=== PATIENT | male | born 1970 | race Caucasian/White ===

== ENCOUNTER → 2023-04-04 02:40 | Outpatient (CLI) | payer MEDICAID, SELFPAY ==
--- NOTE | 2023-04-04 13:35 | DI.RAD_ITS ---
Exam(s) XR LUMBAR SPINE COMPLETE EXAM: XR LUMBAR SPINE COMPLETE CLINICAL HISTORY: LBP, M54.50. TECHNIQUE: 2D digital imaging was performed. COMPARISON: No exams were available for comparison FINDINGS: Five views No evidence of fracture. Mild anterolisthesis L5 upon S1 which appears to be related to facet arthro sis. Also appear to be pars defects. There is moderate disc space narrowing at each level in the jerry mbar spine, most prominent at L3-4 and L4-5 levels. No prominent scoliosis. SI joints appear un mar ked below. Facet joint arthrosis noted. IMPRESSION: Multilevel chronic degenerative disc disease. Also throw listhesis L5 upon S1 due to pars defects an d some. If clinically indicated follow-up MRI can be performed DATA REPOSITORY: RADIATION DOSE DELIVERED:
--- NOTE | 2023-04-04 13:38 | DI.RAD_ITS ---
Exam(s) XR THORACIC SPINE COMPLETE EXAM: XR THORACIC SPINE COMPLETE CLINICAL HISTORY: LBP, M54.50. TECHNIQUE: 2D digital imaging was performed. COMPARISON: CR XR LUMBAR SPINE COMPLETE from 04/04/2023 FINDINGS: 3 views There are no compression fractures nor listhesis in the thoracic spinal column. No significant scoli osis. No abnormal widening of the paraspinal lines. No osseous lesions. Bone density is age-approp riate. IMPRESSION: As above. DATA REPOSITORY: RADIATION DOSE DELIVERED:
== END ==
PROVIDERS: PCP Nurse Practitioner Family; Visit Provider Nurse Practitioner Family
DX: M50.33 Other cervical disc degeneration, cervicothoracic region (principal)
CPT/HCPCS: 72072; 72110

== ENCOUNTER 2024-10-07 12:05 | Inpatient (IN) | payer MEDICAID, SELFPAY ==
[2024-10-07] VITALS (55 sets, daily range): BP systolic 108–163; BP diastolic 60–95; PULSE 36–61; RESP 16–21; TEMP 36.1; O2SAT 91–98
--- NOTE | 2024-10-07 12:00 | RT.EKG_ITS ---
APPROVED REPORT Exam: Resting ECG Reason for Exam: Overdose Patient Location: E HR:56 bpm ECG Measurements Heart Rate 56 AXIS WV 219 P 42 QRSd 99 QRS 18 QT 460 T 156 QTc 425 Conclusion Sinus bradycardia...rate< 60 Ventricular premature complex...V complex w/ short R-R interval Prolonged WV interval...WV >210, V-rate 50- 90 Abnormal T, consider ischemia, lateral leads...T <-0.20mV, I aVL V5 V6 Borderline ST elevation, anterior leads...ST >0.15mV in V1-V4
--- NOTE | 2024-10-07 12:23 | NUR.NOTE ---
Nursing Note: Called poison control and talked to KWAKU Peters. Per Lorraine the following should be checked: APAP/ASA level, CMP, CBC, EKG for Qtc changes. Supportive measures.
[2024-10-07 12:27] LABS: Abs Immature Grans 0.01 10^3/uL (0.0-0.06); HCT 40.1 % (40.0-50.0); HGB 13.5 g/dL (13.5-17.5); Immature Grans % 0.2 %; MCH 30.1 pg (27.0-33.0); MCHC 33.7 % (32.0-36.0); MCV 90 fL (80-95); MPV 10.6 fL (8.0-11.0); Platelet Count 168 10^3/uL (130-400); RBC 4.48 10^6/uL (4.36-5.78); RDW 13.2 % (11.8-14.1); RDW-SD 43.5 fL; WBC 4.99 10^3/uL (4.4-10.8)
[2024-10-07 12:58] LABS: Cannabinoids THC Negative (Negative); METHADONE URINE SCREEN Negative (Negative)
[2024-10-07 13:00] LABS: ALT 26 U/L (16-63); AST 25 U/L (15-37); Albumin 3.2 g/dL (3.4-5.0); Alkaline Phosphatase 54 U/L (46-116); Anion Gap 10.2 mmol/L (3-11); BUN 17 mg/dL (7-18); Bilirubin, Total 0.6 mg/dL (0.2-1.0); CO2 23.8 mmol/L (21.0-32.0); Calcium 8.4 mg/dL (8.5-10.1); Chloride 109 mmol/L (98-107); Estimated GFR 90.56 (mL/min/1.73m2); Glucose 118 mg/dL (74-106); Magnesium 2.3 mg/dL (1.8-2.4); Potassium 3.8 mmol/L (3.5-5.1); Sodium 143 mmol/L (136-145); Total Protein 6.1 g/dL (6.4-8.2); Troponin I 65 ng/L (<or=76)
[2024-10-07 13:13] LABS: Salicylate < 2.8 mg/dL (<2.8)
[2024-10-07 13:14] LABS: Acetaminophen < 2 ug/mL (10-30)
--- NOTE | 2024-10-07 14:43 | DI.CT_ITS ---
Exam(s) CT HEAD WO EXAM: CT HEAD WO CLINICAL HISTORY: alterted. TECHNIQUE: Imaging Protocol: Axial computed tomography images with coronal and sagittal reformatted images were created and reviewed COMPARISON: CT HEAD WITH/WITHOUT CONTRAST from 05/13/2012 FINDINGS: There are no skull fractures. There is no fluid in the visualized paranasal sinuses. There is no evidence of intracranial hemorrhage, mass effect, or shift of midline structures. There are no extra-axial fluid collections. The ventricles are not enlarged or shifted and there is no blood within the ventricular system nor within the basal cisterns. IMPRESSION: No acute intracranial findings on this noninfused CT scan of the brain. Report called by myself to ER 10/07/2024 at 3:15 p.m. RADIATION DOSE DELIVERED: 887.96mGy.cm Total DLP DATA REPOSITORY: All CT scans at this facility are submitted to the National Radiology Data Registry (NRDR) Dose Index Registry (DIR) with the [employer] (A[employer]). RADIATION OPTIMIZATION: All CT scans at this facility use at least one of these dose optimization techniques: automated exposure control; mA and/or kV adjustment per patient size (includes targeted exams where dose is matched to clinical indication); or iterative reconstruction.
--- NOTE | 2024-10-07 15:22 | ED.GENADUL_ITS ---
Discharge Plan Disposition Patient Disposition: Admit to [facility] Condition: Serious Discharge Details Clinical Impression: Acute alteration in mental status, Acute drug overdose, First degree AV block Primary Care Provider: Unknown,Unknown ED Provider: Dl Sprague Home Meds and New Rx's Prescriptions: No Action omeprazole 20 MG capsule,delayed release(DR/EC) 20 mg PO DAILY HPI General Mode of arrival: ambulatory . Date/Time Provider Initiated Documentation: 10/07/24 12:16 . Limitations to Documentation: altered mental status . Information obtained by: patient . HPI Narrative: HISTORY OF PRESENT ILLNESS 53-year-old male found unresponsive and incontinent in [facility]. Last known normal at 2300 hours. Empty prescription bottles at bedside: clonidine 0.2 mg, clonazepam 0.5 mg, methylphenidate 10 mg, pantoprazole 40 mg. Clonazepam and methylphenidate bottles nearly full (90 tabs). Clonidine filled in 05/2024. History limited secondary to altered mental status. The patient's called and provided additional history noting that patient has been acting odd a couple weeks ago which then resolved until yesterday when he was again behaving atypically. When she woke up today she noticed that he was altered and that the pill bottles were empty next to the bed. Related Data Home Medications ?Medication ?Instructions ?Recorded ?Confirmed omeprazole 20 mg capsule,delayed 20 mg PO DAILY 09/13/17 release Allergies Allergy/AdvReac Type Severity Reaction Status Date / Time No Known Allergies Allergy Unverified 09/13/17 10:48 General Stated Complaint: OD/Poison [place]LAH: 2 Exam [facility] Head: normocephalic and atraumatic Mouth: moist mucous membranes Eyes Conjunctivae: normal conjunctivae Sclera: normal sclerae Neck Neck: trachea midline and supple Resp Auscultation: clear to auscultation bilaterally, no rales, no rhonchi and no wheezes Cardio Rate: regular rate and not tachycardic Rhythm: regular rhythm GI Palpation: soft, not firm, no guarding, no masses, not rigid and nontender Skin General skin exam: no rashes or lesions noted Neuro General: not alert and not awake Cognition: abnormal cognition Left pupil size: 4 cm Right pupil size: 4 cm Other: GCS 9 ([id number]) Extrem General: no edema Psych Mental Status: mental status grossly abnormal Course Vital Signs Vital signs: Vital Signs Pulse 53 L 07/16/25 12:08 Respiratory Rate 21 10/07/24 12:08 Blood Pressure 163/95 H 10/07/24 12:08 Pulse Oximetry 98 10/07/24 12:08 Pulse 48 L 10/07/24 14:31 Pulse 48 L 10/07/24 14:31 Respiratory Rate 17 10/07/24 14:31 Blood Pressure 117/67 10/07/24 14:30 Blood Pressure Mean 83 10/07/24 14:30 Blood Pressure Position Sitting 10/07/24 12:08 Pulse Oximetry 96 10/07/24 14:31 Respiratory End-tidal CO2 23 10/07/24 14:31 Oxygen Delivery Method Nasal Cannula 10/07/24 12:08 Oxygen Flow Rate 3 10/07/24 12:08 Lab/Test Results Lab/Test Results: Laboratory Tests Range/Units 10/07/24 10/07/24 12:07 12:28 WBC (4.4-10.8) 10^3/uL 4.99 RBC (4.36-5.78) 10^6/uL 4.48 Hgb (13.5-17.5) g/dL 13.5 Hct (40.0-50.0) % 40.1 MCV (80-95) fL 90 MCH (27.0-33.0) pg 30.1 MCHC (32.0-36.0) % 33.7 RDW (11.8-14.1) % 13.2 Plt Count (130-400) 10^3/uL 168 MPV (8.0-11.0) fL 10.6 Immature Gran % % 0.2 Neutrophils % % 56.7 Lymphocytes % % 25.5 Monocytes % % 12.4 Eosinophils % % 4.2 Basophils % % 1.0 Nucleated RBC % (0.0-0.3) % 0.0 Absolute Neutrophils (1.2-6.7) 10^3/uL 2.83 Absolute Lymphocytes (1.2-3.4) 10^3/uL 1.27 Absolute Monocytes (0.1-0.8) 10^3/uL 0.62 Absolute Eosinophils (0.0-0.7) 10^3/uL 0.21 Absolute Basophils (0.0-0.2) 10^3/uL 0.05 Sodium (136-145) mmol/L 143 Potassium (3.5-5.1) mmol/L 3.8 Chloride (98-107) mmol/L 109 H Carbon Dioxide (21.0-32.0) mmol/L 23.8 Anion Gap (3-11) mmol/L 10.2 BUN (7-18) mg/dL 17 Creatinine (0.70-1.30) mg/dL 1.0 Est GFR (CKD-EPI 2020) (mL/min/1.73m2) 90.56 Glucose (74-106) mg/dL 118 H Calcium (8.5-10.1) mg/dL 8.4 L Magnesium (1.8-2.4) mg/dL 2.3 Total Bilirubin (0.2-1.0) mg/dL 0.6 AST (15-37) U/L 25 ALT (16-63) U/L 26 Alkaline Phosphatase (46-116) U/L 54 Troponin I (<or=76) ng/L 65 Total Protein (6.4-8.2) g/dL 6.1 L Albumin (3.4-5.0) g/dL 3.2 L Salicylates (<2.8) mg/dL < 2.8 Urine Opiates Screen (Negative) Negative Urine Methadone Screen (Negative) Negative Acetaminophen (10-30) ug/mL < 2 Ur Barbiturates Screen (Negative) Negative Ur Tricyclics Screen (Negative) Negative Ur Amphetamines Screen (Negative) Negative U Benzodiazepines Scrn (Negative) Negative Urine Cocaine Screen (Negative) Negative Ur THC Screen (Negative) Negative Ethyl Alcohol (<10) mg/dL < 3.0 Medical Decision Making ASSESSMENT AND PLAN Initial Assessment: 53-year-old male found unresponsive and incontinent with empty prescription bottles. Somnolent, responds to painful stimuli, unresponsive to verbal stimuli. EKG shows sinus bradycardia, prolonged DE interval, corrected QTc interval. Hemodynamically stable, protecting airway. Recent abnormal behavior per . Differential Diagnosis: - Drug overdose: Empty prescription bottles found. Consider suicidal attempt. - Cardiac arrhythmia: Sinus bradycardia, prolonged DE interval. - Neurological event including acute life-threatening hemorrhage: Unresponsive, somnolent. - Consider toxic ingestion. ED Course: - Found unresponsive and incontinent with empty prescription bottles. - EKG: Sinus bradycardia, 56 bpm, normal axis, prolonged DE interval 219, corrected QTc interval 525. - Hemodynamically stable: BP 163/95, HR 70, SpO2 97% on 3 L nasal cannula, RR 21. - Pupils 4 mm, reactive bilaterally. - Respiratory therapy consulted. - Chart review: Last seen in ED in 2018. - CT of the head was reviewed and interpreted by radiology: No acute intracranial findings at this time if you CT scan of the brain. - Nursing spoke with Poison Control Center and the recommended continued monitoring. - Labs reviewed and nondiagnostic. - I called and spoke with Dr. Niño, on-call hospitalist, he will admit the patient. Final Assessment: Suspected drug overdose, sinus bradycardia, prolonged DE interval. Hemodynamically stable, protecting airway. Monitoring and poison contr ol consultation. Clinical Impression: - Drug overdose - Sinus bradycardia - Altered mental status - 1st deg AV block Disposition: - Admission: Hospitalization required This document was written with the assistance of EDUAR Wilkins. The patient consented to its use. Lab Data Labs: Laboratory Tests Range/Units 10/07/24 10/07/24 12:07 12:28 WBC (4.4-10.8) 10^3/uL 4.99 RBC (4.36-5.78) 10^6/uL 4.48 Hgb (13.5-17.5) g/dL 13.5 Hct (40.0-50.0) % 40.1 MCV (80-95) fL 90 MCH (27.0-33.0) pg 30.1 MCHC (32.0-36.0) % 33.7 RDW (11.8-14.1) % 13.2 Plt Count (130-400) 10^3/uL 168 MPV (8.0-11.0) fL 10.6 Immature Gran % % 0.2 Neutrophils % % 56.7 Lymphocytes % % 25.5 Monocytes % % 12.4 Eosinophils % % 4.2 Basophils % % 1.0 Nucleated RBC % (0.0-0.3) % 0.0 Absolute Neutrophils (1.2-6.7) 10^3/uL 2.83 Absolute Lymphocytes (1.2-3.4) 10^3/uL 1.27 Absolute Monocytes (0.1-0.8) 10^3/uL 0.62 Absolute Eosinophils (0.0-0.7) 10^3/uL 0.21 Absolute Basophils (0.0-0.2) 10^3/uL 0.05 Sodium (136-145) mmol/L 143 Potassium (3.5-5.1) mmol/L 3.8 Chloride (98-107) mmol/L 109 H Carbon Dioxide (21.0-32.0) mmol/L 23.8 Anion Gap (3-11) mmol/L 10.2 BUN (7-18) mg/dL 17 Creatinine (0.70-1.30) mg/dL 1.0 Est GFR (CKD-EPI 2020) (mL/min/1.73m2) 90.56 Glucose (74-106) mg/dL 118 H Calcium (8.5-10.1) mg/dL 8.4 L Magnesium (1.8-2.4) mg/dL 2.3 Total Bilirubin (0.2-1.0) mg/dL 0.6 AST (15-37) U/L 25 ALT (16-63) U/L 26 Alkaline Phosphatase (46-116) U/L 54 Troponin I (<or=76) ng/L 65 Total Protein (6.4-8.2) g/dL 6.1 L Albumin (3.4-5.0) g/dL 3.2 L Salicylates (<2.8) mg/dL < 2.8 Urine Opiates Screen (Negative) Negative Urine Methadone Screen (Negative) Negative Acetaminophen (10-30) ug/mL < 2 Ur Barbiturates Screen (Negative) Negative Ur Tricyclics Screen (Negative) Negative Ur Amphetamines Screen (Negative) Negative U Benzodiazepines Scrn (Negative) Negative Urine Cocaine Screen (Negative) Negative Ur THC Screen (Negative) Negative Ethyl Alcohol (<10) mg/dL < 3.0 PFSH All Active Problems (Updated 10/07/24 @ 15:30 by Dl Sprague MD) First degree AV block (Acute) Acute drug overdose (Acute) Acute alteration in mental status (Acute) Social History Smoking/Tobacco Use Status: Current every day Smoking risk assessment performed?: Yes Drug use: Never Do you feel safe in your relationship?: Yes
[2024-10-07] MEDS: DEXTROSE 5%-0.45% SALINE 1,000 ML 100 ML IV (15:56)
--- NOTE | 2024-10-07 17:02 | W.PM.HP.N ---
Date of service: 10/07/24 Time of Service: 17:02 Assessment and Plan Assessment and plan (1) Acute alteration in mental status: Status: Acute Assessment and plan: Exact etiology is unknown but the working diagnosis of a drug overdose. Per my discussion with the ER physician, according to poison control there is nothing further to intervene on and will require time. I do not see any role for reversal agents at this point. (2) Acute drug overdose: Status: Acute Assessment and plan: As above (3) Bradycardia: Status: Acute Assessment and plan: Patient does have fairly significant bradycardia but the question at this point is whether or not he is symptomatic or asymptomatic and he can answer. The patient is oxygenating well and protecting his airway which leads me to believe that he is also getting appropriate oxygen to his brain. Will continue to monitor but at this point will not start on pacer support. History of Present Illness History of Present Illness Chief Complaint: drug overdose Narrative: This H&P is completed through chart review as the patient is not responding at this time. He does open his eyes to verbal stimuli but does not keep them open long enough to get any sort of linear history. Per ED note Mr. Mcgregor ingested multiple medications that belonged to his including clonidine clonazepam methylphenidate pantoprazole with most of those bottles being quite full. Evidently according to his who discussed the patient with the ED physician Dr. Sprague had been acting strangely over the last couple of weeks before she found him passed out he was brought in by ambulance. In reviewing his clinical data white count CBCs were essentially benign his CMP was essentially benign urine drug screen was negative specifically negative for benzodiazepines. This does cast intact out at least the clonazepam part of the story. Imaging done in the ED including a head CT was negative for any acute events. In reviewing the ED note he was noted to have sinus bradycardia with a heart rate less than 60. Nursing staff report that the patient has heart rate is in the high 30s to low 40s but he is oxygenating well. Review of Systems Unobtainable due to mental condition PFSH All Active Problems (Updated 10/07/24 @ 17:11 by Elias Niño MD) Bradycardia (Acute) First degree AV block (Acute) Acute drug overdose (Acute) Acute alteration in mental status (Acute) Social History Smoking/Tobacco Use Status: Current every day Smoking risk assessment performed?: Yes Drug use: Never Do you feel safe in your relationship?: Yes Meds Allergies and Home Medications Allergies Allergy/AdvReac Type Severity Reaction Status Date / Time No Known Allergies Allergy Unverified 09/13/17 10:48 Home Medications ?Medication ?Instructions ?Recorded ?Confirmed ?Type omeprazole 20 mg capsule,delayed 20 mg PO DAILY 09/13/17 09/13/17 History release Exam Narrative Exam Narrative: HEENT-normocephalic atraumatic his mucous membranes are moist his pupils are approximately 4 mm and responsive to light. Neck-no lymphadenopathy no JVD no thyromegaly Cardiovascular-bradycardia no murmur rubs or gallops Lungs-clear to auscultation bilaterally with good air exchange patient does not appear to be in respiratory distress Abdomen-soft nontender nondistended Extremities-no cyanosis clubbing or edema Neurologic-cannot be completely assessed due to underlying condition. Patient only has a mild response to pain on his soles as well as to sternal rub. Patient does respond to verbal stimuli and will open his eyes but quickly falls asleep Results Labs 10/07/24 12:07 10/07/24 12:07 Labs: Laboratory Results - last 24 hr 10/07/24 10/07/24 12:07 12:28 WBC 4.99 RBC 4.48 Hgb 13.5 Hct 40.1 MCV 90 MCH 30.1 MCHC 33.7 RDW 13.2 Plt Count 168 MPV 10.6 Immature Gran % 0.2 Neutrophils % 56.7 Lymphocytes % 25.5 Monocytes % 12.4 Eosinophils % 4.2 Basophils % 1.0 Nucleated RBC % 0.0 Absolute Neutrophils 2.83 Absolute Lymphocytes 1.27 Absolute Monocytes 0.62 Absolute Eosinophils 0.21 Absolute Basophils 0.05 Sodium 143 Potassium 3.8 Chloride 109 H Carbon Dioxide 23.8 Anion Gap 10.2 BUN 17 Creatinine 1.0 Est GFR (CKD-EPI 2020) 90.56 Glucose 118 H Calcium 8.4 L Magnesium 2.3 Total Bilirubin 0.6 AST 25 ALT 26 Alkaline Phosphatase 54 Troponin I 65 Total Protein 6.1 L Albumin 3.2 L Salicylates < 2.8 Urine Opiates Screen Negative Urine Methadone Screen Negative Acetaminophen < 2 Ur Barbiturates Screen Negative Ur Tricyclics Screen Negative Ur Amphetamines Screen Negative U Benzodiazepines Scrn Negative Urine Cocaine Screen Negative Ur THC Screen Negative Ethyl Alcohol < 3.0 Last Vital Signs Pulse 47 L 10/07/24 16:01 Resp 17 10/07/24 16:01 BP 123/60 10/07/24 16:01 Pulse Ox 98 10/07/24 16:01 Time Spent Time spent with Patient: 40-54 minutes Time was spent: preparing to see the patient(eg.review tests), obtaining and/or reviewing separately otained hiistory, ordering medications,tests, procedures, referring, communicating with other health patient care technician instructor, indepentently interpreting results, counseling the patient and care coordination
[2024-10-08] VITALS (33 sets, daily range): BP systolic 92–125; BP diastolic 46–74; PULSE 50–107; RESP 20–36; TEMP 36.9–37.1; O2SAT 88–96
[2024-10-08] MEDS: DEXTROSE 5%-0.45% SALINE 1,000 ML 100 ML IV ×3 (01:40→21:22)
[2024-10-08 07:03] LABS: HCT 41.7 % (40.0-50.0); HGB 14.1 g/dL (13.5-17.5); MCH 30.6 pg (27.0-33.0); MCHC 33.8 % (32.0-36.0); MCV 91 fL (80-95); MPV 11.2 fL (8.0-11.0); Platelet Count 179 10^3/uL (130-400); RBC 4.61 10^6/uL (4.36-5.78); RDW 13.5 % (11.8-14.1); RDW-SD 45.2 fL; WBC 10.66 10^3/uL (4.4-10.8)
[2024-10-08 07:40] LABS: ALT 29 U/L (16-63); AST 28 U/L (15-37); Albumin 3.3 g/dL (3.4-5.0); Alkaline Phosphatase 55 U/L (46-116); Anion Gap 8.7 mmol/L (3-11); BUN 15 mg/dL (7-18); Bilirubin, Total 0.4 mg/dL (0.2-1.0); CO2 25.3 mmol/L (21.0-32.0); Calcium 9.0 mg/dL (8.5-10.1); Chloride 110 mmol/L (98-107); Estimated GFR 102.76 (mL/min/1.73m2); Glucose 102 mg/dL (74-106); Potassium 4.2 mmol/L (3.5-5.1); Sodium 144 mmol/L (136-145); Total Protein 6.5 g/dL (6.4-8.2)
--- NOTE | 2024-10-08 08:50 | INITIAL_ITS ---
Date of service: 10/08/24 Time of Service: 08:50 Care Management Initial Assmt Initial Assessment Reason for Hospitalization: drug overdose Functional Status/Living Situation Patient Presentation: Tyler was lying in bed in the ICU when CM met with him. He was still very sleepy and seemed to have difficulty staying focused. He was admitted yesterday after being found unresponsive with several empty medication bottles on the table next to him. It is presumed this was a suicide attempt. His reported to the ED that he had been off a couple of weeks ago but returned to baseline and then was off again yesterday. Conversation with Tyler was challenging. CM did learn that Tyler lives in [facility] with his Angelina. He has 2 daughters who live in [place] and is not currently employed. Further information was not forthcoming. CM was able to speak to his fiancee Angelina (together 26 years) who provided more information about Tyler. She stated that he spent 6 years in detention and was released almost 2 years ago. She stated that she believes he has some mental health issues and that there is a strong history of schizophrenia in his family. She has tried to get him to seek help but he has declined. Angelina stated that she is having a hard time with this and that Tyler has never done anything like this before. Angelina did share that Tyler spoke to his sister Jazmín recently and that every time they have a conversation, he is upset afterwards. Angelina stated that she plans to come to visit sometime this afternoon. CM offered to meet with her if she feels it would be helpful. Town of Residence: [place], [place] Resides with: Spouse (-Angelina) Employment Status: Unemployed Instrumental Activities of Daily Living (ADLs): Independent Medications Medication Management: No Issues/Barriers identified Advance Directives Advance Directives: Do you have an Advance Directive: N , 10:02 AD On File at [facility]: N 05/27/12, 10:02 Date Asked 10/07/24 10/07/24, 16:27 AD Date Reviewed COLST On File at [facility] COLST Date Scanned Code Status Resuscitation Status Full Code Portal Pt does not currently have a portal and education provided: Yes Insurance Coverage/Financial Issues Insurance: Medicaid Care Team Visit Care Team Role Provider Type Unknown Unknown Primary Care Provider STAFF PHYSICIAN Dl Sprague MD Emergency Provider [facility] STAFF PHYSICIAN Elias Niño MD Admit Provider MD [facility] STAFF PHYSICIAN Attending Provider Discharge Potential Discharge Needs: PCP F/U Appt Anticipated Barriers to Discharge: None Identified Patient/Family Education Needs: Review discharge instructions, discuss Ask Me Three Transportation: Private vehicle Plan: Tyler's discharge plan is not clear at this time. This appears to be a suicide attempt so he will need to be screened by [facility] Crisis team when he is medically cleared. He may require inpatient treatment for stabilization. CM will follow and continue to support discharge planning. Social Determinants of Health Screening Will the Patient Participate in the Screening?: Unable to obtain [facility] All Active Problems (Updated 10/07/24 @ 17:11 by Elias Niño MD) Bradycardia (Acute) First degree AV block (Acute) Acute drug overdose (Acute) Acute alteration in mental status (Acute) Social History Smoking/Tobacco Use Status: Current every day Smoking risk assessment performed?: Yes Drug use: Never Do you feel safe in your relationship?: Yes
[2024-10-08] MEDS: Omeprazole 20 MG CAPCR PO (08:51)
[2024-10-08] MEDS: Thiamine 100 MG TAB PO (08:51)
[2024-10-08] MEDS: Normal Saline Flush 10 ML SYR IVP (08:51)
[2024-10-08] MEDS: Enoxaparin 40 MG/0.4 ML SYR SC (08:51)
--- NOTE | 2024-10-08 13:41 | PGE_ITS ---
Date of Service Date of service: 10/08/24 Time of Service: 13:41 Assessment and Plan Assessment and plan (1) Acute alteration in mental status: Status: Acute Assessment and plan: Exact etiology is unknown but the working diagnosis of a drug overdose. Per my discussion with the ER physician, according to poison control there is nothing further to intervene on and will require time. I do not see any role for reversal agents at this point. 10/08/24 CW supportive care. Improving slightly (2) Acute drug overdose: Status: Acute Assessment and plan: As above (3) Bradycardia: Status: Acute Assessment and plan: Patient does have fairly significant bradycardia but the question at this point is whether or not he is symptomatic or asymptomatic and he can answer. The patient is oxygenating well and protecting his airway which leads me to believe that he is also getting appropriate oxygen to his brain. Will continue to monitor but at this point will not start on pacer support. 10/08/24 HR has improved and is now consistently in the mid-high 50's Subjective Subjective Interval history since last seen: PT does respond more appropriately today but is still quite somnolent. Exam Narrative Exam Narrative: HEENT-normocephalic atraumatic his mucous membranes are moist his pupils are approximately 4 mm and responsive to light. Neck-no lymphadenopathy no JVD no thyromegaly Cardiovascular-bradycardia no murmur rubs or gallops Lungs-clear to auscultation bilaterally with good air exchange patient does not appear to be in respiratory distress Abdomen-soft nontender nondistended Extremities-no cyanosis clubbing or edema Neuro-Pt does respond more appropriately to verbal stimuli but still not to the point where a full neuro exam is possible Objective Last Vital Signs Temp 37.1 C 10/08/24 11:29 Pulse 57 L 10/08/24 12:01 Resp 23 10/08/24 12:01 BP 112/58 L 10/08/24 12:01 Pulse Ox 94 10/08/24 12:01 Laboratory Results - last 24 hr 10/08/24 10/08/24 05:26 05:46 WBC 10.66 RBC 4.61 Hgb 14.1 Hct 41.7 MCV 91 MCH 30.6 MCHC 33.8 RDW 13.5 Plt Count 179 MPV 11.2 H Sodium 144 Potassium 4.2 Chloride 110 H Carbon Dioxide 25.3 Anion Gap 8.7 BUN 15 Creatinine 0.9 Est GFR (CKD-EPI 2020) 102.76 Glucose 102 Calcium 9.0 Total Bilirubin 0.4 AST 28 ALT 29 Alkaline Phosphatase 55 Total Protein 6.5 Albumin 3.3 L Time Spent with Patient Time Spent with Patient: 25-34 minutes Time was spent: preparing to see the patient(eg.review tests), obtaining and/or reviewing separately otained hiistory, ordering medications,tests, procedures, referring, communicating with other health healthcare economics consultant, indepentently interpreting results, counseling the patient and care coordination
[2024-10-09] VITALS (21 sets, daily range): BP systolic 74–157; BP diastolic 61–97; PULSE 55–85; RESP 8–23; TEMP 36.8–37.3; O2SAT 91–96
[2024-10-09 05:59] LABS: HCT 39.9 % (40.0-50.0); HGB 13.1 g/dL (13.5-17.5); MCH 29.9 pg (27.0-33.0); MCHC 32.8 % (32.0-36.0); MCV 91 fL (80-95); MPV 10.8 fL (8.0-11.0); Platelet Count 158 10^3/uL (130-400); RBC 4.38 10^6/uL (4.36-5.78); RDW 13.3 % (11.8-14.1); RDW-SD 44.5 fL; WBC 6.90 10^3/uL (4.4-10.8)
[2024-10-09 06:22] LABS: ALT 27 U/L (16-63); AST 26 U/L (15-37); Albumin 3.0 g/dL (3.4-5.0); Alkaline Phosphatase 51 U/L (46-116); Anion Gap 9.1 mmol/L (3-11); BUN 12 mg/dL (7-18); Bilirubin, Total 0.3 mg/dL (0.2-1.0); CO2 25.9 mmol/L (21.0-32.0); Calcium 8.6 mg/dL (8.5-10.1); Chloride 109 mmol/L (98-107); Estimated GFR 90.56 (mL/min/1.73m2); Glucose 92 mg/dL (74-106); Potassium 3.6 mmol/L (3.5-5.1); Sodium 144 mmol/L (136-145); Total Protein 6.2 g/dL (6.4-8.2)
[2024-10-09] MEDS: Thiamine 100 MG TAB PO (07:50)
[2024-10-09] MEDS: Enoxaparin 40 MG/0.4 ML SYR SC (07:50)
[2024-10-09] MEDS: Omeprazole 20 MG CAPCR PO (07:50)
[2024-10-09] MEDS: Normal Saline Flush 10 ML SYR IVP (07:51)
--- NOTE | 2024-10-09 08:55 | CMPROGNOTE_ITS ---
Date of service: 10/09/24 Time of Service: 08:55 Care Management Progress Note Progress Note Text Progress Note Text: Tawanda has shown a lot of improvement since yesterday and was medically cleared. He was screened by [facility] and denied SI or HI, yet he admitted that this was a suicide attempt and wanted to . The decision was made to make him involuntary. Unfortunately, Tawanda chose to leave AMAbefore the EE paperwork could be completed. He left at approximately 14:45. [facility] has indicated they will seek a warrant to have him brought back to [facility]. He was NOT told that the EE was in process. Discharge Potential Discharge Needs: PCP F/U Appt Anticipated Barriers to Discharge: None Identified Transportation: Private vehicle Plan: Tyler decided to leave AMA this afternoon. He was been screened by [facility] and the decision was made to hold him involuntarily. He was not informed about the decision as the paperwork had not been completed. [facility] plans to seek a warrant to have him returned to [facility]. Social Determinants of Health Screening Will the Patient Participate in the Screening?: Unable to obtain
--- NOTE | 2024-10-09 14:57 | W.PM.PROGNOT ---
Date of Service Date of service: 10/09/24 Time of Service: 14:57 Assessment and Plan Assessment and plan (1) Acute alteration in mental status: Status: Acute Assessment and plan: Exact etiology is unknown but the working diagnosis of a drug overdose. Per my discussion with the ER physician, according to poison control there is nothing further to intervene on and will require time. I do not see any role for reversal agents at this point. 10/08/24 CW supportive care. Improving slightly 10/09/24 Per NS, pt is EE. I do not have EE certification privileges. Reaching out to ED to see if ED attending can fill out paperwork properly (2) Acute drug overdose: Status: Acute Assessment and plan: As above 10/09/24 Appears close to baseline from the medical perspective (3) Bradycardia: Status: Acute Assessment and plan: Patient does have fairly significant bradycardia but the question at this point is whether or not he is symptomatic or asymptomatic and he can answer. The patient is oxygenating well and protecting his airway which leads me to believe that he is also getting appropriate oxygen to his brain. Will continue to monitor but at this point will not start on pacer support. 10/08/24 HR has improved and is now consistently in the mid-high 50's 10/09/24 Resolved Subjective Subjective Interval history since last seen: Per NS, pt has been placed on emergency retirement Exam Narrative Exam Narrative: NCAT MMM AAO NO RESPIRATORY DISTRESS MULTIPLE TATTOOS DOES NOT APPEAR TO BE IN DISTRESS Objective Last Vital Signs Temp 37.3 C 10/09/24 12:06 Pulse 68 10/09/24 12:06 Resp 14 10/09/24 14:00 BP 157/90 H 10/09/24 12:06 Pulse Ox 92 10/09/24 12:06 Laboratory Results - last 24 hr 10/09/24 05:45 WBC 6.90 RBC 4.38 Hgb 13.1 L Hct 39.9 L MCV 91 MCH 29.9 MCHC 32.8 RDW 13.3 Plt Count 158 MPV 10.8 Sodium 144 Potassium 3.6 Chloride 109 H Carbon Dioxide 25.9 Anion Gap 9.1 BUN 12 Creatinine 1.0 Est GFR (CKD-EPI 2020) 90.56 Glucose 92 Calcium 8.6 Total Bilirubin 0.3 AST 26 ALT 27 Alkaline Phosphatase 51 Total Protein 6.2 L Albumin 3.0 L Time Spent with Patient Time Spent with Patient: <25 minutes Time was spent: preparing to see the patient(eg.review tests), obtaining and/or reviewing separately otained hiistory, ordering medications,tests, procedures, referring, communicating with other health long term care social worker, indepentently interpreting results, counseling the patient and care coordination
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
== END 2024-10-09 14:45 | disposition left against medical advice (07) | DRG 918 ==
LOC: ER 15:30 → ICU 16:27
PROVIDERS: Admitting Provider Hospitalist; Emergency Provider Student in an Organized Health Care Education/Training Program; Responsible Provider Hospitalist; Visit Provider Hospitalist
DX: T50.992A Poisoning by other drugs, medicaments and biological substances, intentional self-harm, initial encounter (principal); R41.82 Altered mental status, unspecified; R00.1 Bradycardia, unspecified; I44.0 Atrioventricular block, first degree; F17.210 Nicotine dependence, cigarettes, uncomplicated; Z79.899 Other long term (current) drug therapy; Z91.51 Personal history of suicidal behavior
CPT/HCPCS: 00123; 36415; 80053; 80307; 85027; 93005; 96127; 99285; J1650; 70450; 80320; 80329; 83735; 84484; 85025; 93010; 99222; 99231; 99232

== ENCOUNTER 2024-10-09 22:51 | Emergency (ER) | payer MEDICAID, SELFPAY ==
--- NOTE | 2024-10-09 22:45 | RT.EKG_ITS ---
APPROVED REPORT Exam: Resting ECG Reason for Exam: medical clearance Patient Location: E HR:87 bpm ECG Measurements Heart Rate 87 AXIS SC 185 P 14 QRSd 95 QRS -25 QT 344 T 162 QTc 414 Conclusion Sinus rhythm...normal P axis, V-rate 60- 99 Probable left atrial enlargement...P >50mS, <-0.10mV V1 Inferior infarct, old...Q >35mS, II III aVF Nonspecific T abnormalities, lateral leads...T <-0.10mV, I aVL V5 V6 Borderline ST elevation, anterior leads...ST >0.15mV in V1-V4 Lead II not able to interpret no ST segment or T wave abnormalities to suggest occlusive DE
[2024-10-09 23:21] VITALS: BP 216/121; PULSE 104; RESP 22; TEMP 36.5; O2SAT 93
--- NOTE | 2024-10-09 23:30 | RT.EKG_ITS ---
APPROVED REPORT Exam: Resting ECG Reason for Exam: medical clearance Patient Location: E HR:78 bpm ECG Measurements Heart Rate 78 AXIS AR 192 P 35 QRSd 95 QRS -2 QT 358 T 97 QTc 407 Conclusion Sinus rhythm...normal P axis, V-rate 60- 99 Probable left atrial enlargement...P >50mS, <-0.10mV V1 Nonspecific T abnormalities, lateral leads...T <-0.10mV, I aVL V5 V6 ST elev, probable normal early repol pattern...ST elevation, age<[address] segment or T wave abnormalities to suggest occlusive MA
--- NOTE | 2024-10-09 23:38 | W.ED.GENAD ---
Discharge Plan Discharge Details Chief Complaint: PsychEval Clinical Impression: Suicide attempt Primary Care Provider: Unknown,Unknown ED Provider: Dalia Garcia Home Meds and New Rx's Prescriptions: No Action omeprazole 20 MG capsule,delayed release(DR/EC) 20 mg PO DAILY HPI General Mode of arrival: EMS. Date/Time Provider Initiated Documentation: 10/09/24 22:52. Limitations to Documentation: no limitations. Information obtained by: patient, police, EMS and old records reviewed. HPI Narrative: 53yo M with recent hospital admission for suicide attempt via overdose, left AMA from hospital and brought back to ED on warrant for EE. Patient reports that he did try to kill himself 'the other day' by 'taking a bunch of pills'. States he does not want to be in the hospital and he left earlier today because he 'was tired of waiting to be discharged'. States he does not need any mental health treatment and that he can 'handle it myself'; denies active SI at this time. Refuses outpatient mental health resources again stating 'I don't need any help, I'm fine'. He denies any HI/AH/VH. Denies prior psychiatric hospitalizations or prior suicide attempts. Reports that since leaving earlier today he went home and took care of his dogs and since then has been laying in bed. Denies any physical complaints. Otherwise in his usual state of health with no fevers, chills, rash, chest pain, shortness of breath, vomiting, or pain anywhere. [facility] records reviewed: Admitted 10/07 after intentional overdose, was found unresponsive Warrant for EE reviewed: In ICU today prior to leaving AMA, pt made statements such as over it, don't want to do it anymore, I don't care regarding living vs dying. Prior SA via slitting throat. [facility] clinician assessment that patient demonstrating no remorse for actions and not making life-affirming comments, shows poor insight and judgment. Related Data Home Medications ?Medication ?Instructions ?Recorded ?Confirmed omeprazole 20 mg capsule,delayed 20 mg PO DAILY 09/13/17 09/13/17 release Allergies Allergy/AdvReac Type Severity Reaction Status Date / Time No Known Allergies Allergy Unverified 09/13/17 10:48 General Stated Complaint: PsychEval KYLAH: 2 Review of Systems Narrative: see HPI Exam Narrative Exam Narrative: General: Alert, well appearing, well nourished, in no acute distress. Head: Normocephalic, atraumatic Neck: Trachea midline, ?Neck supple. ENT: ?MMM.? No oropharygeal lesions or exudate. Cardiac: ?RRR, no murmurs appreciated Resp: No respiratory distress. CTAB. Abd: ?Soft, non-distended, nontender : ?No suprapubic tenderness. Extremities: ?No deformities.? No peripheral edema. Neurologic: GCS 15. ? Moves all extremities freely against gravity Psych: Calm, cooperative.? Well groomed.? Mood okay, affect flat.? Poor eye contact. Speech soft and slow with rythym and tone. Linear and goal directed.? Denies SI/HI/AH/VH. ? Does not appear to be responding to internal stimuli. No abnormal movements. Course Vital Signs Vital signs: Vital Signs Temperature 36.5 C 10/09/24 23:21 Pulse 104 H 10/09/24 23:21 Respiratory Rate 22 10/09/24 23:21 Blood Pressure 216/121 H 10/09/24 23:21 Pulse Oximetry 93 10/09/24 23:21 Temperature 36.5 C 10/09/24 23:21 Temperature Source Temporal Artery Scan 10/09/24 23:21 Pulse 104 H 10/09/24 23:21 Respiratory Rate 22 10/09/24 23:21 Blood Pressure 216/121 H 10/09/24 23:21 Blood Pressure Position Sitting 10/09/24 23:21 Pulse Oximetry 93 10/09/24 23:21 Oxygen Delivery Method Room Air 10/09/24 23:21 Oxygen Flow Rate 0 10/09/24 23:21 Medical Decision Making 53yo M with recent hospital admission for suicide attempt via overdose, left AMA from hospital and brought back to ED on warrant for EE. Denies any further ingestions since leaving the hospital today. States he does not need any mental health treatment and that he can 'handle it myself'; denies active SI at this time. Refuses outpatient mental health resources again stating 'I don't need any help, I'm fine'. To me he denies prior psychiatric hospitalizations or prior suicide attempts (see below). Hypertensive and slightly tachycardiac on arrival after being brought in by police- suspect situational. Benign physical exam. No clinical toxidrome present. -[facility] records reviewed: Admitted 10/07 after intentional overdose, was found unresponsive -Warrant for EE reviewed: In ICU today prior to leaving AMA, pt made statements such as over it, don't want to do it anymore, I don't care regarding living vs dying. Prior SA via slitting throat. [facility] clinician assessment that patient demonstrating no remorse for actions and not making life-affirming comments, shows poor insight and judgment. EKG NSR, appropriate intervals, no ST segment or T wave abnormalities to suggest occlusive PA, (ST elev V1-V3 unchanged from prior EKG, likely early repol) Medical screening labs reviewed, CBC reassuring with no leukocytosis or anemia, CMP with slightly elevated Cr at 1.4 and no actionable abnormalities, Mg normal, serum tox negative, troponin normal. On reassessment he remains hypertensive, HR improved. No prior history of hypertension but again he is slightly agitated and understandably distress and being brought to the emergency department against his will. I would not treat his BP urgently at this time and if he were otherwise appropriate for discharge I would recommend outpatient followup/recheck for this and so will not withhold medical clearance. Based on his significant suicide attempt two days ago resulting in being found unresponsive, his poor insight into his impulsive behavior, and refusal of any outpatient resources, I do believe he is at significant immediate risk for repeat suicide attempt. [facility] evaluated patient earlier in the day while he was still in the hospital and this prompted the warrant which brought him back to the ED; I concur with their assessment. EE filled out and sent, pending second cert. Placed on ED observation status. Lab Data Lab results reviewed: Yes I reviewed the patient's lab results. Labs: Laboratory Tests Range/Units 10/10/24 00:00 WBC (4.4-10.8) 10^3/uL 7.04 RBC (4.36-5.78) 10^6/uL 4.59 Hgb (13.5-17.5) g/dL 13.7 Hct (40.0-50.0) % 40.8 MCV (80-95) fL 89 MCH (27.0-33.0) pg 29.8 MCHC (32.0-36.0) % 33.6 RDW (11.8-14.1) % 13.0 Plt Count (130-400) 10^3/uL 172 MPV (8.0-11.0) fL 10.9 Immature Gran % % 0.1 Neutrophils % % 63.4 Lymphocytes % % 21.3 Monocytes % % 11.6 Eosinophils % % 3.0 Basophils % % 0.6 Nucleated RBC % (0.0-0.3) % 0.0 Absolute Neutrophils (1.2-6.7) 10^3/uL 4.46 Absolute Lymphocytes (1.2-3.4) 10^3/uL 1.50 Absolute Monocytes (0.1-0.8) 10^3/uL 0.82 H Absolute Eosinophils (0.0-0.7) 10^3/uL 0.21 Absolute Basophils (0.0-0.2) 10^3/uL 0.04 Sodium (136-145) mmol/L 145 Potassium (3.5-5.1) mmol/L 3.6 Chloride (98-107) mmol/L 107 Carbon Dioxide (21.0-32.0) mmol/L 27.2 Anion Gap (3-11) mmol/L 10.8 BUN (7-18) mg/dL 12 Creatinine (0.70-1.30) mg/dL 1.4 H Est GFR (CKD-EPI 2020) (mL/min/1.73m2) 60.47 Glucose (74-106) mg/dL 97 Calcium (8.5-10.1) mg/dL 9.2 Magnesium (1.8-2.4) mg/dL 2.1 Total Bilirubin (0.2-1.0) mg/dL 0.2 AST (15-37) U/L 31 ALT (16-63) U/L 31 Alkaline Phosphatase (46-116) U/L 66 Troponin I (<or=76) ng/L 31 Total Protein (6.4-8.2) g/dL 7.3 Albumin (3.4-5.0) g/dL 3.6 Salicylates (<2.8) mg/dL < 2.8 Acetaminophen (10-30) ug/mL < 2 PFSH All Active Problems (Updated 10/10/24 @ 01:50 by Dalia Garcia MD) Suicide attempt (Acute) Bradycardia (Acute) First degree AV block (Acute) Acute drug overdose (Acute) Acute alteration in mental status (Acute) Social History Smoking/Tobacco Use Status: Current every day Smoking risk assessment performed?: Yes Drug use: Never Housing: house Do you feel safe in your relationship?: Yes
[2024-10-10 00:10] VITALS: BP 235/117; PULSE 79; RESP 20; TEMP 35.9; O2SAT 100
[2024-10-10 00:13] LABS: Abs Immature Grans 0.01 10^3/uL (0.0-0.06); HCT 40.8 % (40.0-50.0); HGB 13.7 g/dL (13.5-17.5); Immature Grans % 0.1 %; MCH 29.8 pg (27.0-33.0); MCHC 33.6 % (32.0-36.0); MCV 89 fL (80-95); MPV 10.9 fL (8.0-11.0); Platelet Count 172 10^3/uL (130-400); RBC 4.59 10^6/uL (4.36-5.78); RDW 13.0 % (11.8-14.1); RDW-SD 42.3 fL; WBC 7.04 10^3/uL (4.4-10.8)
[2024-10-10 00:30] LABS: ALT 31 U/L (16-63); AST 31 U/L (15-37); Albumin 3.6 g/dL (3.4-5.0); Alkaline Phosphatase 66 U/L (46-116); Anion Gap 10.8 mmol/L (3-11); BUN 12 mg/dL (7-18); Bilirubin, Total 0.2 mg/dL (0.2-1.0); CO2 27.2 mmol/L (21.0-32.0); Calcium 9.2 mg/dL (8.5-10.1); Chloride 107 mmol/L (98-107); Estimated GFR 60.47 (mL/min/1.73m2); Glucose 97 mg/dL (74-106); Magnesium 2.1 mg/dL (1.8-2.4); Potassium 3.6 mmol/L (3.5-5.1); Sodium 145 mmol/L (136-145); Total Protein 7.3 g/dL (6.4-8.2)
[2024-10-10 00:33] LABS: Troponin I 31 ng/L (<or=76)
[2024-10-10 00:41] LABS: Salicylate < 2.8 mg/dL (<2.8)
[2024-10-10 00:47] LABS: Acetaminophen < 2 ug/mL (10-30)
[2024-10-10 03:56] VITALS: BP 195/105
--- NOTE | 2024-10-10 06:55 | ED.PROG1_ITS ---
Date of service: 10/10/24 Time of Service: 06:59 Psychiatric Border Handoff Update Brief Story: In brief, this is a 53-year-old male patient who attempted suicide by overdose, currently boarding on an EE awaiting inpatient psychiatric placement. Prior to my taking over their care, the patient was medically cleared, and has been resting comfortably. They have met with the social service assistant and we are awaiting final dispo. They have not required any additional medications for restraint or sedation. They have been admitted to ED psych observation. The patient was signed out to the oncoming provider prior to final disposition. Remained hemodynamically appropriate, calm, cooperative, and comfortable while under my care. Maria C Styles MD Status: EE Able to leave: no, this patient is an EE Behavioral Concerns: None Potential Disposition: Inpatient Barriers to Disposition: Awaiting acceptance/placement Medical Concerns: Initial blood pressure quite elevated, will monitor for improvement, no history of same. Wtg UA -obtained during my shift, trace blood but no proteinuria or evidence of infection. Mediation Reconciliation performed: Yes Code Status ordered: Yes Diet ordered: Yes Discharge Plan Discharge Details Chief Complaint: PsychEval Clinical Impression: Suicide attempt Primary Care Provider: Unknown,Unknown ED Provider: Maria C Styles Home Meds and New Rx's Prescriptions: No Action omeprazole 20 MG capsule,delayed release(DR/EC) 20 mg PO DAILY
[2024-10-10 08:55] LABS: Glucose Negative (Negative)
[2024-10-10 09:01] LABS: C & S Indicated? No; RBC 0-2 HPF (0-2); WBC Negative HPF (0-5)
--- NOTE | 2024-10-10 09:17 | CMPROGNOTE_ITS ---
Date of service: 10/10/24 Time of Service: 09:18 Care Management Progress Note Progress Note Text Progress Note Text: No huddle occurred for Tyler Mcgregor. CM received report from customs house broker and Zone [facility] RN. Per report, Tyler was brought in to [facility] on an MH warrant. First certification has been completed. Per RN, Tyler's partner has contacted the unit multiple times and has expressed significant distress regarding Tyler's hospitalization. Per report, Tyler is demonstrating insight and remorse towards prior SI attempt. This represents a noted change in presentation compared to the previous day and was confirmed by [facility]. CM contacted [facility] for fu rther clarification. Per [facility] Tyler is required to remain in the facility until a determination is made regarding the second certification. [facility] anticipates a decision on the second certification by 18:30. Involuntery safety plan has been implimated. CM commuicated second cert time with customs house broker and [facility] RN. CM will continue to follow and update accordingly. Social Determinants of Health Screening Will the Patient Participate in the Screening?: Declined to provide
--- NOTE | 2024-10-10 09:17 | CMSP_ITS ---
Date of service: 10/10/24 Time of Service: 09:17 Care Management Safety Plan Status Status: Involuntary Reason for Wait Reason for Wait: Inpatient Admission Safety Plan Safety Plan: INVOLUNTARY FOR INPATIENT PSYCHIATRIC STABILIZATION.? Patient is appropriate in all interactions since arriving at [facility]; Pt has demonstrated appropriate coping and communication skills, has articulated his or her needs and concerns and is fully engaged during staff interactions. Safety plan has been established with patient, and care team, to adhere to patient goals, identify restrictions based on behavioral status, address nutrition, and determine allowed personal belongings, tools for hygiene and personal care. Determine level of activity including ambulation, level of supervision, visitors, and determine privileges based on behaviors and level of engagement by pt. SAFETY PLAN: 1. Will remain on suicide precautions, in paper clothes 2. Will remain in Zone B under direct supervision of one-on-one staff at all times provided by [employer]; RIGOBERTO, TELEGRAPHIC TYPEWRITER OPERATOR supervisor esters and emulsifiers. 3. May have paper cups, plates, finger foods as well as a cardboard spoon with which to eat meals. 4. Follow [facility] Management of the Admitted Behavioral Health Patient policy. 5. Shower available in Zone B without restriction. 6. Personal belongings-soft items permitted at RN discretion. 7. Visitors-none at this time. 8. Activities: soft cart items approved per RN discretion. 9.? Bathroom available in Zone B without restriction. 10. Phone: limited to legal technician on [facility] cordless phone at RN discretion. Due to INVOLUNTARY status, patient is being held at [facility] by the Department of Mental Health ([facility]) until 2nd certification by [facility] Psychiatrist can be performed (within 24 hours). Staff will provide de-escalation support (CPI) as needed. If patient wishes to leave [facility], staff will contact [facility] Crisis Screener ([phone]) and Intelligence Engineer ([phone]) as soon as possible. In the event of elopement, notify [place] [employer] ([phone]). Patient is currently involuntarily at [facility]. [facility] Frontline Hospital Admissions Clerk will continue seeking placement. Please contact the Intelligence Engineer for any needed changes to Safety Plan. Safety plan has been provided to interdepartmental care team. Patient will be transported by [employer] at time of discharge.
--- NOTE | 2024-10-10 09:17 | PDOC.CMSAFE ---
Date of service: 10/10/24 Time of Service: 09:17 Care Management Safety Plan Status Status: Involuntary Reason for Wait Reason for Wait: Inpatient Admission Safety Plan Safety Plan: INVOLUNTARY FOR INPATIENT PSYCHIATRIC STABILIZATION.? Patient is appropriate in all interactions since arriving at [facility]; Pt has demonstrated appropriate coping and communication skills, has articulated his or her needs and concerns and is fully engaged during staff interactions. Safety plan has been established with patient, and care team, to adhere to patient goals, identify restrictions based on behavioral status, address nutrition, and determine allowed personal belongings, tools for hygiene and personal care. Determine level of activity including ambulation, level of supervision, visitors, and determine privileges based on behaviors and level of engagement by pt. SAFETY PLAN: 1. Will remain on suicide precautions, in paper clothes 2. Will remain in Zone B under direct supervision of one-on-one staff at all times provided by [employer]; RIGOBERTO, SPA CONSULTANT carding machine operator. 3. May have paper cups, plates, finger foods as well as a cardboard spoon with which to eat meals. 4. Follow [facility] Management of the Admitted Behavioral Health Patient policy. 5. Shower available in Zone B without restriction. 6. Personal belongings-soft items permitted at RN discretion. 7. Visitors-none at this time. 8. Activities: soft cart items approved per RN discretion. 9.? Bathroom available in Zone B without restriction. 10. Phone: limited to manager legal on [facility] cordless phone at RN discretion. Due to INVOLUNTARY status, patient is being held at [facility] by the Department of Mental Health ([facility]) until 2nd certification by [facility] Psychiatrist can be performed (within 24 hours). Staff will provide de-escalation support (CPI) as needed. If patient wishes to leave [facility], staff will contact [facility] Crisis Screener ([phone]) and Welder Setter Resistance Machine ([phone]) as soon as possible. In the event of elopement, notify [place] Police ([phone]). Patient is currently involuntarily at [facility]. [facility] Frontline Sampler First will continue seeking placement. Please contact the Welder Setter Resistance Machine for any needed changes to Safety Plan. Safety plan has been provided to interdepartmental care team. Patient will be transported by [facility] at time of discharge.
--- NOTE | 2024-10-10 09:17 | PDOC.CMPRO ---
Date of service: 10/10/24 Time of Service: 09:18 Care Management Progress Note Progress Note Text Progress Note Text: No huddle occurred for Tyler Mcgregor. CM received report from sales warehouse driver and Zone B RN. Per report, Tyler was brought in to [facility] on an MH warrant. First certification has been completed. Per RN, Tyler's partner has contacted the unit multiple times and has expressed significant distress regarding Tyler's hospitalization. Per report, Tyler is demonstrating insight and remorse towards prior SI attempt. This represents a noted change in presentation compared to the previous day and was confirmed by [facility]. CM contacted [facility] for further clarification. Per [facility] Tyler is required to remain in the facility until a determination is made regarding the second certification. [facility] anticipates a decision on the second certification by 18:30. Involuntery safety plan has been implimated. CM commuicated second cert time with sales warehouse driver and Zone B RN. CM will continue to follow and update accordingly. Social Determinants of Health Screening Will the Patient Participate in the Screening?: Declined to provide
[2024-10-10] MEDS: Omeprazole 20 MG CAPCR PO (10:46)
[2024-10-10 11:08] VITALS: BP 156/97; PULSE 89; RESP 16; TEMP 35.9; O2SAT 95
[2024-10-10] MEDS: Nicotine 4 MG GUM CH (12:06)
--- NOTE | 2024-10-10 20:23 | ED.PSYCHBOAR ---
Date of service: 10/10/24 Time of Service: 20:23 Psychiatric Border Handoff Update Brief Story: Patient currently under an involuntary hold. A second certification was completed and upheld. Second certification documentation in the patient's chart. Discharge Plan Discharge Details Chief Complaint: PsychEval Clinical Impression: Suicide attempt Primary Care Provider: Unknown,Unknown ED Provider: Jose Neal Home Meds and New Rx's Prescriptions: No Action omeprazole 20 MG capsule,delayed release(DR/EC) 20 mg PO DAILY
--- NOTE | 2024-10-11 07:24 | ED.PROG1_ITS ---
Date of service: 10/11/24 Time of Service: 07:24 Psychiatric Border Handoff Update Brief Story: 53-year-old male patient boarding in our emergency department on an EE after a suicide attempt by overdose. Prior to my taking over their care, the patient was medically cleared, and has been resting comfortably. They have met with the director social service and we are awaiting final dispo. They have not required any additional medications for restraint or sedation. They have been admitted to ED psych observation. The patient was signed out to the oncoming provider prior to final disposition. Remained hemodynamically appropriate, calm, cooperative, and comfortable while under my care. Maria C Styles MD Status: EE Able to leave: no, this patient is an EE Behavioral Concerns: None Potential Disposition: Inpatient Barriers to Disposition: Awaiting acceptance and placement Medical Concerns: None Mediation Reconciliation performed: Yes Code Status ordered: Yes Diet ordered: Yes Discharge Plan Discharge Details Chief Complaint: PsychEval Clinical Impression: Suicide attempt Primary Care Provider: Unknown,Unknown ED Provider: Maria C Styles Home Meds and New Rx's Prescriptions: No Action omeprazole 20 MG capsule,delayed release(DR/EC) 20 mg PO DAILY
[2024-10-11 08:21] VITALS: BP 119/85; PULSE 78; RESP 16; TEMP 36; O2SAT 95
[2024-10-11] MEDS: Omeprazole 20 MG CAPCR PO (08:21)
--- NOTE | 2024-10-11 11:37 | CMPROGNOTE_ITS ---
Date of service: 10/11/24 Time of Service: 13:02 Care Management Progress Note Progress Note Text Progress Note Text: CM held a separate huddle with [facility] B staff and later with the [facility] ES screener. Tyler's 2 cert is complete, and he is awaiting impatient treatment. Per Zone B, Tyler was allowed to contact his , Angelina, last night. However, in accordance with the safety plan, phone access will be limited to commercial litigation paralegal on the [facility] cordless phone at the discretion of the RN. [facility] confirms that phone access for commercial litigation paralegal remains the only appropriate contact for Tyler, at this time. Angelina has made multiple attempts to persuade staff to permit phone communication with the patient, despite education regarding the safety plan. CM once more stated to Angelina that this communication cannot be approved, at this time; Meaning CM did not approve such communications, through any discussion with Angelina. This information writer provided a detailed explanation to Angelina regarding the current phone restriction and reasoning behind them. CM also clarified the RN can provide updates if she calls. [facility] staff is aware and follows the safety plan. CM will continue to follow. Social Determinants of Health Screening Will the Patient Participate in the Screening?: Declined to provide
--- NOTE | 2024-10-11 11:37 | CMSP_ITS ---
Date of service: 10/11/24 Time of Service: 11:37 Care Management Safety Plan Status Status: Involuntary (2nd cert complete) Reason for Wait Reason for Wait: Inpatient Admission Safety Plan Safety Plan: INVOLUNTARY FOR INPATIENT PSYCHIATRIC STABILIZATION.? Patient is appropriate in all interactions since arriving at [facility]; Pt has demonstrated appropriate coping and communication skills, has articulated his or her needs and concerns and is fully engaged during staff interactions. Safety plan has been established with patient, and care team, to adhere to patient goals, identify restrictions based on behavioral status, address nutrition, and determine allowed personal belongings, tools for hygiene and personal care. Determine level of activity including ambulation, level of supervision, visitors, and determine privileges based on behaviors and level of engagement by pt. SAFETY PLAN: 1. Will remain on suicide precautions, in paper clothes 2. Will remain in Zone B under direct supervision of one-on-one staff at all times provided by [employer]; RIGOBERTO, WHARF LABOURER integration director. 3. May have paper cups, plates, finger foods as well as a cardboard spoon with which to eat meals. 4. Follow [facility] Management of the Admitted Behavioral Health Patient policy. 5. Shower available in Zone B without restriction. 6. Personal belongings-soft items permitted at RN discretion. 7. Visitors-none at this time. 8. Activities: soft cart items approved per RN discretion. 9.? Bathroom available in Zone B without restriction. 10. Phone: limited to legal word processor on [facility] cordless phone at RN discretion. Due to INVOLUNTARY status, patient is being held at [facility] by the Department of Mental Health ([facility]) until 2nd certification by [facility] Psychiatrist can be performed (within 24 hours). Staff will provide de-escalation support (CPI) as needed. If patient wishes to leave [facility], staff will contact [facility] Crisis Screener ([phone]) and Wine Cellar Worker ([phone]) as soon as possible. In the event of elopement, notify [place] [employer] ([phone]). Patient is currently involuntarily at [facility]. [facility] Frontline Staff Toxicologist will continue seeking placement. Please contact the Wine Cellar Worker for any needed changes to Safety Plan. Safety plan has been provided to interdepartmental care team. Patient will be transported by [employer] at time of discharge.
--- NOTE | 2024-10-11 11:37 | PDOC.CMSAFE ---
Date of service: 10/11/24 Time of Service: 11:37 Care Management Safety Plan Status Status: Involuntary (2nd cert complete) Reason for Wait Reason for Wait: Inpatient Admission Safety Plan Safety Plan: INVOLUNTARY FOR INPATIENT PSYCHIATRIC STABILIZATION.? Patient is appropriate in all interactions since arriving at [facility]; Pt has demonstrated appropriate coping and communication skills, has articulated his or her needs and concerns and is fully engaged during staff interactions. Safety plan has been established with patient, and care team, to adhere to patient goals, identify restrictions based on behavioral status, address nutrition, and determine allowed personal belongings, tools for hygiene and personal care. Determine level of activity including ambulation, level of supervision, visitors, and determine privileges based on behaviors and level of engagement by pt. SAFETY PLAN: 1. Will remain on suicide precautions, in paper clothes 2. Will remain in Zone B under direct supervision of one-on-one staff at all times provided by [employer]; RIGOBERTO, MARINE FISHERIES TECHNICIAN issuing operator. 3. May have paper cups, plates, finger foods as well as a cardboard spoon with which to eat meals. 4. Follow [facility] Management of the Admitted Behavioral Health Patient policy. 5. Shower available in Zone B without restriction. 6. Personal belongings-soft items permitted at RN discretion. 7. Visitors-none at this time. 8. Activities: soft cart items approved per RN discretion. 9.? Bathroom available in Zone B without restriction. 10. Phone: limited to personal injury litigation paralegal on [facility] cordless phone at RN discretion. Due to INVOLUNTARY status, patient is being held at [facility] by the Department of Mental Health ([facility]) until 2nd certification by [facility] Psychiatrist can be performed (within 24 hours). Staff will provide de-escalation support (CPI) as needed. If patient wishes to leave [facility], staff will contact [facility] Crisis Screener ([phone]) and Chief Controller ([phone]) as soon as possible. In the event of elopement, notify [place] [employer] ([phone]). Patient is currently involuntarily at [facility]. [facility] Frontline Welding Specialist will continue seeking placement. Please contact the Chief Controller for any needed changes to Safety Plan. Safety plan has been provided to interdepartmental care team. Patient will be transported by [employer] at time of discharge.
--- NOTE | 2024-10-12 07:24 | ED.PSYCHBOAR ---
Date of service: 10/12/24 Time of Service: 07:24 Psychiatric Border Handoff Update Brief Story: This patient was hospitalized on 10/07 after an intentional overdose. He is currently on an EE w/ second CERT completed. Patient stable throughout shift. Pending placement. Status: EE Able to leave: no, this patient is an EE Behavioral Concerns: None Potential Disposition: I spoke with Dr. Jordan Moore from the [facility] who graciously agreed to accept the patient. Mediation Reconciliation performed: Yes Code Status ordered: Yes Diet ordered: Yes Future to do Items: No active behavioral issues on my shift. Patient was signed out to Dr. Wynn. Discharge Plan Disposition Patient Disposition: Transfer-Acute Inpatient Care Discharge Details Clinical Impression: Suicide attempt Primary Care Provider: Unknown,Unknown ED Provider: Martinez Guthrie [place] Meds and New Rx's Prescriptions: Continued omeprazole 20 MG capsule,delayed release(DR/EC) 20 mg PO DAILY Discharge Instructions Additional Instructions: You were seen in the emergency department following your suicide attempt. You are excepted to the [facility]. Your medications were not changed.
[2024-10-12 08:00] VITALS: BP 178/101; PULSE 89; RESP 16; TEMP 36.2; O2SAT 95
[2024-10-12] MEDS: Omeprazole 20 MG CAPCR PO (09:06)
--- NOTE | 2024-10-12 11:54 | NUR.NOTE ---
11:05: This rn s/w Diamond at [place] and gave report on Tyler. Pt awake, alert, and oriented. Pt is independent and ambulates steadily. Pt is and has been pleasant and cooperative. No distress noted. Nursing Note:
--- NOTE | 2024-10-12 14:18 | PDOC.MHPN2 ---
Date of service: 10/12/24 Time of Service: 14:19 Mental Health Emergency Note Release [facility] release signed:: Yes Reason for Visit The client is new to [facility]. He has never been hospitalized before. He was last seen for evaluation on 10.11.24 as he waited for inpatient treatment on an EE status. The client left [facility] on 10.09 following an intentional overdose of his girlfriends medications resulting in a MH Warrant being written and bringing him back to the hospital. In the last 2 weeks has the pt presented for ES prior to today?: Yes, presented at [facility] ED Impression Client is a 53-year-old male that resides with his in [place], [place]. 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 All underrepresented categories were honored during this assessment. The client presents sitting at his desk writing. He is dressed in hospital mandated scrubs. He has many tattoos on his neck and arms. He is cooperative and friendly and engaged in the assessment however, it is observed that he continues to show no insight as to the events that lead up to him being brought back to the ED on a Warrant. He stated I would like to go home. I have friends, a , and animals that need me and I have to work. The client rated his risk level a 0/10 today and stated he didn't want to when he took the pills, he just wanted to sleep. This clinician inquired if he had any thoughts that the amount of pills he was taking could have killed him. He said he didn't think they would because his takes them all the time. This clinician explained this is why he continues to not be safety planned home as his takes her meds as prescribed and one of the medications he tool per his report was a sleeping pill and he took the entire bottle. Plan/Disposition Recommended Disposition: Hospitalization facilities contacted. Plan: The client's ED team completed a doc to doc and nurse to nurse for the client and he will be transported to [facility] as soon as transport is arraigned. Person reported agreement to plan: No Reports/communication Outcome discussed with: ED/Personnel
--- NOTE | 2024-10-12 15:46 | CMPROGNOTE_ITS ---
Date of service: 10/12/24 Time of Service: 15:46 Care Management Progress Note Progress Note Text Progress Note Text: CM huddled regarding Tyler's plan of care. Per [facility], Tyler is stating that he prefers to return home, but [facility] doesn't feel comfortable making a safety plan, and having him return without treatment, due to the severity and impulsivity of his attempt. Tyler was accepted at [facility] this morning, and the RN to RN happened just after the team huddle. DM will coordinate transport. Safety plan in place until he discharges to the inpatient psychiatric facility. CM will continue to follow. Social Determinants of Health Screening Will the Patient Participate in the Screening?: Declined to provide
--- NOTE | 2024-10-12 15:47 | NUR.NOTE ---
Pt requested to s/w . This rn informed pt that due to safety plan pt is only able to use phone for legal representation. This rn informed pt that stated she would call for an update. Pt requested be given an update. Pt called and this rn informed her that pt was safe, stable, and doing well. Pt awaiting transport to [place]. Nursing Note:
--- NOTE | 2024-10-12 15:50 | CMSP_ITS ---
Date of service: 10/12/24 Time of Service: 15:50 Care Management Safety Plan Status Status: Involuntary Reason for Wait Reason for Wait: Inpatient Admission Safety Plan Safety Plan: INVOLUNTARY FOR INPATIENT PSYCHIATRIC STABILIZATION.? Patient is appropriate in all interactions since arriving at [facility]; Pt has demonstrated appropriate coping and communication skills, has articulated his or her needs and concerns and is fully engaged during staff interactions. Safety plan has been established with patient, and care team, to adhere to patient goals, identify restrictions based on behavioral status, address nutrition, and determine allowed personal belongings, tools for hygiene and personal care. Determine level of activity including ambulation, level of supervision, visitors, and determine privileges based on behaviors and level of engagement by pt. SAFETY PLAN: 1. Will remain on suicide precautions, in paper clothes 2. Will remain in Zone B under direct supervision of one-on-one staff at all times provided by [employer]; RIGOBERTO, AUTOMATION QTP TESTER chemical operator. 3. May have paper cups, plates, finger foods as well as a cardboard spoon with which to eat meals. 4. Follow [facility] Management of the Admitted Behavioral Health Patient policy. 5. Shower available in Zone B without restriction. 6. Personal belongings-soft items permitted at RN discretion. 7. Visitors-none at this time. 8. Activities: soft cart items approved per RN discretion. 9.? Bathroom available in Zone B without restriction. 10. Phone: limited to legal billing analyst on [facility] cordless phone at RN discretion. Due to INVOLUNTARY status, patient is being held at [facility] by the Department of Mental Health ([facility]) until 2nd certification by [facility] Psychiatrist can be performed (within 24 hours). Staff will provide de-escalation support (CPI) as needed. If patient wishes to leave [facility], staff will contact [facility] Crisis Screener ([phone]) and Subject Scientific Research ([phone]) as soon as possible. In the event of elopement, notify [place] [employer] Police ([phone]). Patient is currently involuntarily at [facility]. [facility] Frontline Barrel Ribs Solderer will continue seeking placement. Please contact the Subject Scientific Research for any needed changes to Safety Plan. Safety plan has been provided to interdepartmental care team. Patient will be transported by [employer] at time of discharge.
--- NOTE | 2024-10-12 15:50 | PDOC.CMSAFE ---
Date of service: 10/12/24 Time of Service: 15:50 Care Management Safety Plan Status Status: Involuntary Reason for Wait Reason for Wait: Inpatient Admission Safety Plan Safety Plan: INVOLUNTARY FOR INPATIENT PSYCHIATRIC STABILIZATION.? Patient is appropriate in all interactions since arriving at [facility]; Pt has demonstrated appropriate coping and communication skills, has articulated his or her needs and concerns and is fully engaged during staff interactions. Safety plan has been established with patient, and care team, to adhere to patient goals, identify restrictions based on behavioral status, address nutrition, and determine allowed personal belongings, tools for hygiene and personal care. Determine level of activity including ambulation, level of supervision, visitors, and determine privileges based on behaviors and level of engagement by pt. SAFETY PLAN: 1. Will remain on suicide precautions, in paper clothes 2. Will remain in Zone B under direct supervision of one-on-one staff at all times provided by [employer]; RIGOBERTO, JAVA LEAD DEVELOPER aids counselor. 3. May have paper cups, plates, finger foods as well as a cardboard spoon with which to eat meals. 4. Follow [facility] Management of the Admitted Behavioral Health Patient policy. 5. Shower available in Zone B without restriction. 6. Personal belongings-soft items permitted at RN discretion. 7. Visitors-none at this time. 8. Activities: soft cart items approved per RN discretion. 9.? Bathroom available in Zone B without restriction. 10. Phone: limited to real estate legal secretary on [facility] cordless phone at RN discretion. Due to INVOLUNTARY status, patient is being held at [facility] by the Department of Mental Health ([facility]) until 2nd certification by [facility] Psychiatrist can be performed (within 24 hours). Staff will provide de-escalation support (CPI) as needed. If patient wishes to leave [facility], staff will contact [facility] Crisis Screener ([phone]) and Site Safety Manager ([phone]) as soon as possible. In the event of elopement, notify [place] [employer] ([phone]). Patient is currently involuntarily at [facility]. [facility] Frontline Peoplesoft Consultant will continue seeking placement. Please contact the Site Safety Manager for any needed changes to Safety Plan. Safety plan has been provided to interdepartmental care team. Patient will be transported by [facility] at time of discharge.
[2024-10-13] MEDS: Omeprazole 20 MG CAPCR PO (08:08)
[2024-10-13 08:23] VITALS: BP 173/107; PULSE 76; RESP 20; TEMP 36.6; O2SAT 95
[2024-10-13 08:42] VITALS: BP 177/111
[2024-10-13] MEDS: amLODIPine 5 MG TAB 10 MG PO (08:53)
--- NOTE | 2024-10-13 10:09 | ED.PSYCHBOAR ---
Date of service: 10/13/24 Time of Service: 10:09 Psychiatric Border Handoff Update Brief Story: Patient currently being held on involuntary hold. Has been accepted by [facility] and currently just pending placement. Plan for [employer]ician department transfer to inpatient psychiatric unit. No issues today has been calm and cooperative. Discharge Plan Disposition Patient Disposition: Psychiatric Hospital/Unit Specific Psychiatric Facility: [facility] Discharge Details Clinical Impression: Suicide attempt Primary Care Provider: Unknown,Unknown ED Provider: Jose Neal Home Meds and New Rx's Prescriptions: Continued omeprazole 20 MG capsule,delayed release(DR/EC) 20 mg PO DAILY Discharge Instructions Additional Instructions: You were seen in the emergency department following your suicide attempt. You are excepted to the [facility]. Your medications were not changed.
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
--- NOTE | 2024-10-20 23:09 | PDOC.MHPN2 ---
Date of service: 10/10/24 Time of Service: 18:30 PHQ-9 Over the last 2 weeks, how often have you been bothered by any of the following problems? 1. Little interest or pleasure in doing things: several days 2. Feeling down, depressed, or hopeless: not at all 3. Trouble falling or staying asleep, or sleeping too much: several days 4. Feeling tired or having little energy: not at all 5. Poor appetite or overeating: not at all 6. Feeling bad about yourself - or that you are a failure or have let yourself and your family down: not at all 7. Trouble concentrating on things, such as reading the newspaper or watching television: several days 8. Moving or speaking so slowly that other people could have noticed? - Or the opposite - being so fidgety or restless that you have been moving around a lot more than usual: not at all 9. Thoughts that you would be better off or of hurting yourself in some way: nearly every day Total score: 6 If you checked off any problems, how difficult have these problems made it for you to do your work, take care of things at home, or get along with other people?: somewhat difficult PHQ-9 Results: Positive Source: Developed by Drs. Elias Barrett, Iliana Rodriguez, Himanshu Nieto and colleagues, with an educational dianne from [employer]. Mental Health Emergency Note Release [facility] release signed:: Yes Reason for Visit Intentional Overdose; 2nd Certification Assessment In the last 2 weeks has the pt presented for ES prior to today?: Yes, presented at Safety Risk/Harm to Self or Others Current Ideation to Harm Self or Others: Yes to self. Intent: yes, has intent. Plan: yes,has a plan. Risk: Does risk to harm exist?: yes. Risk: High Risk Duty to warn indicated: No Impression Client is appears calm, anxious and defensive. Psychiatrist explained the process and client acknowledged understanding. Client has poor insight as evidenced by continued denial of suicidal actions and attempts to restate history. Client continues to exhibit high risk behaviors through denial and downplaying suicidal actions three days ago, not attaching self in future conversations except arrange care for the animals.? The client presented calm and well-groomed, wearing [facility] safety scrubs. During the reassessment and participation in the second certification interview, the client reported drastically different actions and denied any suicidal intent. However, the client continues to demonstrate a lack of insight, as evidenced by his denial of known and previously acknowledged facts regarding a suicidal event. Furthermore, the client does not attach himself to a future when discussing his desire to leave the hospital and return home. He displayed poor judgment by requesting 'criteria documentation so I can figure out how to get outta here.' Additionally, the client continues to decline less restrictive options while remaining goal-oriented for discharge. He is currently waiting in [facility] Zone [facility] for involuntary inpatient mental health treatment. Plan/Disposition Recommended Disposition: Hospitalization facilities contacted. Plan: Client remains involuntary emergency status awaiting placement for inpatient mental health treatment. Facilities contacted if Applicable [facility] Not accepted, No bed available [facility] Not accepted, No bed available, [facility] Not accepted, No bed available [facility] Not accepted, No bed available [facility] Not accepted, No bed available Reports/communication Outcome discussed with: ED/Personnel
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
== END 2024-10-13 09:49 ==
PROVIDERS: Student in an Organized Health Care Education/Training Program; Emergency Provider Emergency Medicine
DX: R45.851 Suicidal ideations (principal); F17.210 Nicotine dependence, cigarettes, uncomplicated
CPT/HCPCS: 00123; 36415; 80053; 93005; 96127; 99285; H0046; 80329; 81003; 81015; 83735; 84484; 85025; 93010

== ENCOUNTER 2024-10-23 19:38 | Outpatient (REF) | payer MEDICAID, SELFPAY ==
[2024-10-23 16:00] LABS: HCT 43.3 % (40.0-50.0); HGB 14.3 g/dL (13.5-17.5); MCH 29.5 pg (27.0-33.0); MCHC 33.0 % (32.0-36.0); MCV 90 fL (80-95); MPV 11.0 fL (8.0-11.0); Platelet Count 277 10^3/uL (130-400); RBC 4.84 10^6/uL (4.36-5.78); RDW 12.8 % (11.8-14.1); RDW-SD 42.2 fL; WBC 8.88 10^3/uL (4.4-10.8)
[2024-10-23 16:21] LABS: Hemoglobin A1C 5.4 % (<5.7)
[2024-10-23 16:27] LABS: ALT 135 U/L (16-63); AST 137 U/L (15-37); Albumin 4.1 g/dL (3.4-5.0); Alkaline Phosphatase 62 U/L (46-116); Anion Gap 5.8 mmol/L (3-11); BUN 13 mg/dL (7-18); Bilirubin, Total 0.4 mg/dL (0.2-1.0); CO2 32.2 mmol/L (21.0-32.0); Calcium 9.5 mg/dL (8.5-10.1); Calculated LDL 130 mg/dL (<100); Chloride 104 mmol/L (98-107); Cholesterol 212 mg/dL (<200); Estimated GFR 90.00 (mL/min/1.73m2); Glucose 106 mg/dL (74-106); HDL Cholesterol 59 mg/dL (>or=40); Potassium 4.4 mmol/L (3.5-5.1); Sodium 142 mmol/L (136-145); TSH 0.35 uIU/mL (0.36-3.74); Total Protein 7.3 g/dL (6.4-8.2); Triglyceride 117 mg/dL (<150)
[2024-10-23 22:16] LABS: CRP, High Sensitivity 2.18 mg/L (See Note)
== END 2024-10-23 19:39 | disposition home or self-care (01) ==
LOC: NCHCN 19:38
PROVIDERS: PCP Family Medicine; Visit Provider Family Medicine
DX: Z82.49 Family history of ischemic heart disease and other diseases of the circulatory system (principal); I10 Essential (primary) hypertension
CPT/HCPCS: 80053; 80061; 85027; 86141; 83036; 84443

== ENCOUNTER 2024-12-09 19:50 | Emergency (ER) | payer MEDICAID, SELFPAY ==
[2024-12-09 20:00] VITALS: BP 173/104; PULSE 113; RESP 20; TEMP 36.7; O2SAT 93
[2024-12-09 20:06] VITALS: BP 173/104; PULSE 113; RESP 20; TEMP 36.7; O2SAT 93
--- NOTE | 2024-12-09 20:45 | RT.EKG_ITS ---
APPROVED REPORT Exam: Resting ECG Reason for Exam: Abd, nausea Patient Location: E HR:91 bpm ECG Measurements Heart Rate 91 AXIS AK 168 P 15 QRSd 91 QRS -11 QT 346 T 79 QTc 427 Conclusion Sinus rhythm...normal P axis, V-rate 60- 99 Atrial premature complex...SV complex w/ short R-R interval I have reviewed and interpreted ECG and agree with software generated interpretation. Borderline ST elevation, anterior leads...ST >0.15mV in V1-V4
--- NOTE | 2024-12-09 20:58 | W.ED.GENAD ---
Discharge Plan Disposition Patient Disposition: Home Condition: Stable Discharge Details Clinical Impression: Abdominal pain, Diverticulosis Primary Care Provider: Orestes Myaer ED Provider: Carolyn Bustillos Home Meds and New Rx's Prescriptions: Continued aspirin 81 mg tablet,delayed release (DR/EC) 81 mg PO DAILY Patient Comments: TAKE 1 TABLET BY MOUTH NIGHTLY AT BEDTIME propranolol 10 mg tablet 10 mg PO BID Patient Comments: TAKE 1 TABLET BY MOUTH TWICE DAILY NEEDED ANXIETY FOR 28 DAYS . TAKE BEFORE ANXIETY STARTS IF POSSIBLE amlodipine 10 mg tablet 10 mg PO DAILY Patient Comments: TAKE 1 TABLET BY MOUTH ONCE DAILY montelukast 10 mg tablet 10 mg PO DAILY Patient Comments: TAKE 1 TABLET BY MOUTH ONCE DAILY AT BEDTIME rosuvastatin 10 mg tablet 10 mg PO DAILY Patient Comments: TAKE 1 TABLET BY MOUTH NIGHTLY AT BEDTIME lamotrigine 25 mg tablet 25 mg PO DAILY Patient Comments: TAKE 2 TABLETS BY MOUTH ONCE DAILY FOR 14 DAYS FOR MOOD STABILIZATION. MONITOR FOR RASH omeprazole 20 MG capsule,delayed release(DR/EC) 20 mg PO DAILY Discharge Instructions Instructions: Diverticulosis (DC), Abdominal Pain, Adult ED Additional Instructions: CT shows a kidney cyst on the left and small amount of blood in your urine. We also do have something called diverticulosis. This is a preliminary result, our radiologist see anything different we will give you a call. Clear liquids for the next 2 to 3 days, bland diet thereafter stay away from anything fried fatty spicy or dairy. You may take an [id number] Mylanta or similar. You may also take Carafate which will coat your stomach. Follow up with primary care provider in 3-5 days. Return to ED sooner if any worsening or concerns. Thank you for allowing us to care for you today. Referrals: Orestes Mayer [Primary Care Provider, Medicine] - 1 week Referral Note: ER follow-up, call for an appointment Clinical Impression: Diverticulosis; Abdominal pain HPI General Mode of arrival: ambulatory. Date/Time Provider Initiated Documentation: 12/09/24 20:00. Limitations to Documentation: no limitations. Information obtained by: patient, RN notes reviewed and old records reviewed. HPI Narrative: 54-year-old male presents to the ER with a chief complaint of generalized abdominal pain for the last week, nausea, bloating and indigestion. He does also endorse shortness of breath dizziness. He endorses drinking 12 pack of alcohol last night. He does have a distended abdomen, generalized tenderness with palpation. He is tachycardic and hypertensive upon arrival. Past medical history includes high cholesterol, hypertension reports that his blood pressure medication was just recently increased. Other past medical history includes GERD Related Data Home Medications ?Medication ?Instructions ?Recorded ?Confirmed omeprazole 20 mg capsule,delayed 20 mg PO DAILY 09/13/17 12/09/24 release amlodipine 10 mg tablet 10 mg PO DAILY 12/09/24 12/09/24 aspirin 81 mg tablet,delayed 81 mg PO DAILY 12/09/24 12/09/24 release lamotrigine 25 mg tablet 25 mg PO DAILY 12/09/24 12/09/24 montelukast 10 mg tablet 10 mg PO DAILY 12/09/24 12/09/24 propranolol 10 mg tablet 10 mg PO BID 12/09/24 12/09/24 rosuvastatin 10 mg tablet 10 mg PO DAILY 12/09/24 12/09/24 Allergies Allergy/AdvReac Type Severity Reaction Status Date / Time No Known Allergies Allergy Unverified 12/09/24 21:01 General Stated Complaint: Abd Prob KYLAH: 3 Review of Systems All systems reviewed & are unremarkable except as noted in HPI and below Cardiovascular Cardiovascular: Reports dyspnea Respiratory Respiratory: Reports dyspnea Gastrointestinal Gastrointestinal: Reports abdominal pain, Reports bloating, Reports early satiety, Reports dyspepsia and Reports nausea Exam Narrative Exam Narrative: Constitutional: Alert and oriented x3. Appears stated age. Normal body habitus. Head: Normocephalic, no trauma. Eyes: Pupils PERRL, Red reflex noted, EOM's intact. Eyelids symmetrical without lesions, discharge, or swelling. ENT: Bilateral TM's WNL, External ear normal to inspection, no mastoid TTP, swelling, or erythema, Nasal turbinates WNL, no nasal discharge. Normal dentition, Posterior pharynx WNL, no exudate. Chest: Sinus tachycardia, normal S1, S2, distal pulses intact. Resp: Lungs clear to auscultation bilaterally, no wheezes, rales, or rhonchi. Abdomen: Distended abdomen, generalized tenderness to palpation, Musculoskeletal: Normal gait, Moves all 4 extremities without difficulty. Skin: No suspicious rashes or lesions. Capillary refill less than 2 sec. Neurologic: Cranial nerves II-XII intact. Alert and oriented x 3. Motor: No deficits noted. Sensory: Intact bilaterally all 4 extremities. Hematologic/Lymphatic: No ecchymosis, no lymphadenopathy. Course Vital Signs Vital signs: Vital Signs Temperature 36.7 C 12/09/24 20:00 Pulse 113 H 12/09/24 20:00 Respiratory Rate 20 12/09/24 20:00 Blood Pressure 173/104 H 12/09/24 20:00 Pulse Oximetry 93 12/09/24 20:00 Temperature 36.7 C 12/09/24 20:06 Pulse 113 H 12/09/24 20:06 Respiratory Rate 20 12/09/24 20:06 Blood Pressure 173/104 H 12/09/24 20:06 Blood Pressure Position Sitting 12/09/24 20:06 Pulse Oximetry 93 12/09/24 20:06 Oxygen Delivery Method Room Air 12/09/24 20:06 Oxygen Flow Rate 0 12/09/24 20:06 Medical Decision Making 54-year-old male presents to the ER with a chief complaint of generalized abdominal pain for the last week, nausea, bloating and indigestion. He does also endorse shortness of breath dizziness. He endorses drinking 12 pack of alcohol last night. He does have a distended abdomen, generalized tenderness with palpation. He is tachycardic and hypertensive upon arrival. Past medical history includes high cholesterol, hypertension reports that his blood pressure medication was just recently increased. Other past medical history includes GERD Workup ordered including EKG, serial troponins, CBC CMP, lipase PT, ethyl alcohol level, magnesium urinalysis CT abdomen pelvis Workup is largely unremarkable, urinalysis shows trace ketones moderate blood 1.0 your mL imaging, 20-50 RBCs. No leukocytosis. Patient does have a large simple left renal cyst which [facility] reports no further workup necessary 4. Some colonic diverticulosis no evidence of appendicitis. Please see official preliminary report. Will give GI cocktail and discharge patient home. Medical Records Medical records reviewed: Yes I reviewed the patient's medical records. Imaging Data Radiologic Study: Imaging: CT Scan Radiologist's impression: Soft tissues: Small fat containing periumbilical hernia. IMPRESSION: No acute abdominal or pelvic abnormality. Thank you for allowing us to participate in the care of your patient. Dictated and Authenticated by: Florencio Nicholson MD Lab Data Lab results reviewed: Yes I reviewed the patient's lab results. Labs: Laboratory Tests Range/Units 12/09/24 12/09/24 21:00 21:55 WBC (4.4-10.8) 10^3/uL 9.94 RBC (4.36-5.78) 10^6/uL 4.86 Hgb (13.5-17.5) g/dL 14.5 Hct (40.0-50.0) % 41.3 MCV (80-95) fL 85 MCH (27.0-33.0) pg 29.8 MCHC (32.0-36.0) % 35.1 RDW (11.8-14.1) % 12.9 Plt Count (130-400) 10^3/uL 238 MPV (8.0-11.0) fL 9.9 Immature Gran % % 0.3 Neutrophils % % 72.1 Lymphocytes % % 17.4 Monocytes % % 7.8 Eosinophils % % 1.8 Basophils % % 0.6 Nucleated RBC % (0.0-0.3) % 0.0 Absolute Neutrophils (1.2-6.7) 10^3/uL 7.16 H Absolute Lymphocytes (1.2-3.4) 10^3/uL 1.73 Absolute Monocytes (0.1-0.8) 10^3/uL 0.78 Absolute Eosinophils (0.0-0.7) 10^3/uL 0.18 Absolute Basophils (0.0-0.2) 10^3/uL 0.06 PT (9.1-11.1) sec 9.7 INR (0.9-1.1) 1.0 Sodium (136-145) mmol/L 140 Potassium (3.5-5.1) mmol/L 3.8 Chloride (98-107) mmol/L 103 Carbon Dioxide (21.0-32.0) mmol/L 28.8 Anion Gap (3-11) mmol/L 8.2 BUN (7-18) mg/dL 16 Creatinine (0.70-1.30) mg/dL 1.3 Est GFR (CKD-EPI 2020) (mL/min/1.73m2) 65.69 Glucose (74-106) mg/dL 103 Calcium (8.5-10.1) mg/dL 9.6 Magnesium (1.8-2.4) mg/dL 2.2 Total Bilirubin (0.2-1.0) mg/dL 0.4 AST (15-37) U/L 26 ALT (16-63) U/L 29 Alkaline Phosphatase (46-116) U/L 66 Troponin I (<or=76) ng/L 46 47 Total Protein (6.4-8.2) g/dL 7.6 Albumin (3.4-5.0) g/dL 4.2 Lipase (<78) U/L 61 Urine Color (Yellow) Yellow Urine Clarity (Clear) Clear Urine pH (5-8) 6.5 Ur Specific [place] (1.005-1.025) 1.015 Urine Protein (Neg-Trace) mg/dL Negative Urine Ketones (Negative) mg/dL Trace H Urine Blood (Negative) Moderate H Urine Nitrite (Negative) Negative Urine Bilirubin (Negative) Negative Urine Urobilinogen (Up to 0.2) mg/dL 1.0 H Ur Leukocyte Esterase (Negative) Negative Urine RBC (0-2) HPF 20-50 H Urine WBC (0-5) HPF 0-2 Ur Epithelial Cells (Negative) HPF Rare Urine Crystals (Negative) HPF Negative Urine Bacteria (Negative) HPF Few Urine Casts (Negative) LPF Negative Urine Mucus (Negative) Negative Ur Culture Indicated? No Urine Glucose (Negative) mg/dL Negative Ethyl Alcohol (<10) mg/dL < 3.0 PFSH All Active Problems (Updated 12/09/24 @ 23:18 by Carolyn Bustillos NP) Diverticulosis (Acute) Abdominal pain (Acute) Bradycardia (Acute) First degree AV block (Acute) Acute drug overdose (Acute) Acute alteration in mental status (Acute) Social History Smoking/Tobacco Use Status: Current every day Smoking risk assessment performed?: Yes Drug use: Never Housing: house Do you feel safe in your relationship?: Yes PAWSS Have you Been Recently Intoxicated or Drunk Within the Last 30 days?: No Have you Ever Experienced Previous Episodes of Alcohol Withdrawal?: No Have you ever Experienced Withdrawal Seizures?: No Have you ever Experienced Delirium Tremens(DT)s?: No Have you ever undergone Alcohol Rehabilitation Treatment (i.e, inpt ot outpatient treatment programs)?: No Have you ever Experienced Blackouts?: No Have you ever Combined Alcohol with other Downers within the last 90 days?: No Have you ever Combined Alcohol with any other Substance of Abuse during the last 90 days?: No Positive Blood Alcohol level on Presentation? [PCS.BAL]: No Evidence of Increased Autonomic Activity (i.e. HR>120, tremor, sweating, agitation, nausea)?: No Result: 0
--- NOTE | 2024-12-09 21:00 | DI.RAD_ITS ---
Exam(s) XR CHEST 2V PA LATERAL EXAM: XR CHEST 2V PA LATERAL CLINICAL HISTORY: SOB TECHNIQUE: 2D digital imaging was performed of the chest. Two images were obtained. PA and lateral views were obtained. COMPARISON: CR CHEST 2 VIEWS PA,LAT from 05/27/2012 CR CHEST 2 VIEWS PA,LAT from 01/08/2014 FINDINGS: MEDIASTINUM: Normal. HEART: Normal. PULMONARY VASCULATURE: Normal. LUNGS: Clear. PLEURAL SPACE: No pleural effusion or pneumothorax. BONE:Within normal limits for the patient's age. OTHER FINDINGS:Normal. IMPRESSION: 1. No acute pulmonary findings. 2. The preliminary [facility] report was reviewed. DATA REPOSITORY: RADIATION DOSE DELIVERED:
--- NOTE | 2024-12-09 21:00 | DI.CT_ITS ---
Exam(s) CT ABDOMEN PELVIS W EXAM: CT ABDOMEN PELVIS W CLINICAL HISTORY: Abdominal bloating, pain, nausea TECHNIQUE: Imaging Protocol: Axial computed tomography images with coronal and sagittal reformatted images were created and reviewed. CONTRAST MATERIAL: Intravenous: Omnipaque 350 Contrast volume:75 mL Oral: No COMPARISON: No exams were available for comparison FINDINGS: ABDOMEN: Lung Bases: No acute abnormality. Liver: Normal density. No measurable mass. Portal, Superior Mesenteric, and Splenic Veins: Unremarkable. Gallbladder and Biliary Tract: No radiodense calculus or dilation. Pancreas: Normal density, no abnormal calcifications or inflammatory process. Spleen: Normal. Adrenals: No masses seen. Kidneys: Normal size, contour and axis. No radiodense stones or obstructive uropathy. There is a simple 4 cm cyst in the superior pole of the left kidney. No follow-up is recommended. Abdominal Aorta: Abdominal portion non-dilated. Atherosclerotic calcification is present. Bowel: There are few diverticula in the colon but no evidence of acute diverticulitis. There is no bowel obstruction or bowel wall thickening present. There is no evidence of an acute appendicitis. Peritoneal Cavity: No ascites, collection or mesenteric inflammatory response. No free air. Lymph Nodes: Within normal limits. Bones: Within normal limits for the patient's age. 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 Soft Tissues: There is a small fat containing paraumbilical hernia. There is a small fat containing right inguinal hernia. PELVIS: Bladder: Symmetric distention, no gross wall thickening. Reproductive Organs: Unremarkable as visualized. Lymph Nodes: Within normal limits. Bones: Within normal limits for the patient's age. IMPRESSION: 1. No acute abdominal or pelvic process. 2. Small fat containing paraumbilical hernia. 3. Colonic diverticulosis without evidence of acute diverticulitis. 4. The preliminary [facility] report was reviewed. RADIATION DOSE DELIVERED: 556.05mGy.cm Total DLP DATA REPOSITORY: All CT scans at this facility are submitted to the National Radiology Data Registry (NRDR) Dose Index Registry (DIR) with the [employer] ([employer]). RADIATION OPTIMIZATION: All CT scans at this facility use at least one of these dose optimization techniques: automated exposure control; mA and/or kV adjustment per patient size (includes targeted exams where dose is matched to clinical indication); or iterative reconstruction.
[2024-12-09 21:07] LABS: Abs Immature Grans 0.03 10^3/uL (0.0-0.06); HCT 41.3 % (40.0-50.0); HGB 14.5 g/dL (13.5-17.5); Immature Grans % 0.3 %; MCH 29.8 pg (27.0-33.0); MCHC 35.1 % (32.0-36.0); MCV 85 fL (80-95); MPV 9.9 fL (8.0-11.0); Platelet Count 238 10^3/uL (130-400); RBC 4.86 10^6/uL (4.36-5.78); RDW 12.9 % (11.8-14.1); RDW-SD 39.6 fL; WBC 9.94 10^3/uL (4.4-10.8)
[2024-12-09 21:17] LABS: INR 1.0 (0.9-1.1); Prothrombin Time 9.7 sec (9.1-11.1)
[2024-12-09 21:22] LABS: ALT 29 U/L (16-63); AST 26 U/L (15-37); Albumin 4.2 g/dL (3.4-5.0); Alkaline Phosphatase 66 U/L (46-116); Anion Gap 8.2 mmol/L (3-11); BUN 16 mg/dL (7-18); Bilirubin, Total 0.4 mg/dL (0.2-1.0); CO2 28.8 mmol/L (21.0-32.0); Calcium 9.6 mg/dL (8.5-10.1); Chloride 103 mmol/L (98-107); Estimated GFR 65.69 (mL/min/1.73m2); Glucose 103 mg/dL (74-106); Lipase 61 U/L (<78); Magnesium 2.2 mg/dL (1.8-2.4); Potassium 3.8 mmol/L (3.5-5.1); Sodium 140 mmol/L (136-145); Total Protein 7.6 g/dL (6.4-8.2)
[2024-12-09 21:27] LABS: Troponin I 46 ng/L (<or=76)
[2024-12-09] MEDS: Normal Saline - Diluent 50 ML VIAL IJ (22:02)
[2024-12-09] MEDS: Normal Saline Flush 10 ML SYR IVP (22:03)
[2024-12-09] MEDS: Omnipaque 350 MG/ML 100 ML BTL IJ (22:03)
[2024-12-09 22:09] LABS: Glucose Negative (Negative)
[2024-12-09 22:19] LABS: C & S Indicated? No; RBC 20-50 HPF (0-2); WBC 0-2 HPF (0-5)
[2024-12-09 22:20] LABS: Troponin I 47 ng/L (<or=76)
--- NOTE | 2024-12-09 23:10 | DI.[facility]_ITS ---
PROCEDURE INFORMATION: Exam: CT Abdomen And Pelvis With Contrast Exam date and time: 12/09/2024 10:03 PM Age: 54 years old Clinical indication: Bloating and nausea and other: Bloating, pain, nausea TECHNIQUE: Imaging protocol: Computed tomography of the abdomen and pelvis with contrast. Contrast material: OMNIPAQUE 350; Contrast volume: 75 ml; Contrast route: INTRAVENOUS (IV); COMPARISON: CR XR LUMBAR SPINE COMPLETE 04/04/2023 1:14 PM FINDINGS: Liver: Normal. Gallbladder and biliary ducts: Normal. Pancreas: Normal. Spleen: Normal. Adrenal glands: Normal. No mass. Kidneys and ureters: Simple left renal cyst, for which no further evaluation necessary per Stomach and bowel: Colonic diverticulosis. Appendix: No evidence of appendicitis. Intraperitoneal space: Unremarkable. No free air. No significant fluid collection. Vasculature: Phleboliths within the pelvis. Atherosclerotic disease of the abdominal aorta and iliac arteries. Lymph nodes: Unremarkable. No enlarged lymph nodes. Urinary bladder: Unremarkable as visualized. Reproductive: Unremarkable as visualized. Bones/joints: Multilevel thoracolumbar spine degenerative disc space narrowing and osteophyte formation. Soft tissues: Small fat containing periumbilical hernia. IMPRESSION: No acute abdominal or pelvic abnormality. Dictated and Authenticated by: Florencio Nicholson MD. Orderin Tressa Leon MD
--- NOTE | 2024-12-09 23:12 | DI.[facility]_ITS ---
PROCEDURE INFORMATION: Exam: XR Chest Exam date and time: 12/09/2024 10:14 PM Age: 54 years old Clinical indication: Shortness of breath; SOB TECHNIQUE: Imaging protocol: Radiologic exam of the chest. Views: 2 views. COMPARISON: CT ABDOMEN PELVIS W 12/09/2024 10:03 PM FINDINGS: Lungs: Normal. Pleural spaces: Normal. Heart/Mediastinum: Normal. Vasculature: Atherosclerotic vascular disease. Bones/joints: Multilevel thoracic spine degenerative disc space narrowing and osteophyte formation. IMPRESSION: No acute cardiopulmonary abnormality. Dictated and Authenticated by: Florencio Nicholson MD. Orderin Tressa Leon MD
[2024-12-09] MEDS: MYLANTA 30 ML, LIDOCAINE 2% VISCOUS UD 15 ML PO (23:32)
== END 2024-12-09 23:35 | disposition home or self-care (01) ==
PROVIDERS: Emergency Provider Registered Nurse Emergency; PCP Family Medicine
DX: K57.30 Diverticulosis of large intestine without perforation or abscess without bleeding (principal); I10 Essential (primary) hypertension; E78.5 Hyperlipidemia, unspecified; F17.210 Nicotine dependence, cigarettes, uncomplicated
CPT/HCPCS: 36415; 80053; 82962; 83690; 93005; 99285; 71046; 74177; 80320; 81003; 81015; 83735; 84484; 85025; 85610; 93010; J3490

== ENCOUNTER 2024-12-16 17:46 | Outpatient (REF) | payer MEDICAID, SELFPAY ==
[2024-12-16 21:19] LABS: Glucose Negative (Negative)
[2024-12-16 21:26] LABS: C & S Indicated? No; RBC 0-2 HPF (0-2); WBC Negative HPF (0-5)
[2024-12-17 18:37] LABS: PSA, Diagnostic 0.7 ng/mL (<=3.5)
== END 2024-12-16 17:47 | disposition home or self-care (01) ==
LOC: NCHCN 17:46
PROVIDERS: PCP Family Medicine; Visit Provider Family Medicine
DX: R31.29 Other microscopic hematuria (principal)
CPT/HCPCS: 81003; 81015; 84153; 88104